=== PATIENT | female | born 1935 | race African-American/Black ===

== ENCOUNTER 2018-06-05 04:27 | Emergency (ER) | payer BC ==
[2018-06-05 05:32] VITALS: BMI 32.2
--- NOTE | 2018-06-05 06:03 | PDOC ---
History of Present Illness - General Chief Complaint: Hemorrhoids Stated Complaint: VAGINAL BLEEDING Time Seen by Provider: 06/05/18 05:55 - History of Present Illness Initial Comments: 06/05/18 06:04 83 year old female, with a significant past medical history of HTN, Hypothyroidism who presents with bright red blood that filled the toilet bowl and two episodes of loose stool today. The patient has a history of hemorrhoids and had some bleeding for the past several days, however she has never had as much bleeding as she had today. The patient denies any abdominal pain, nausea, vomiting or fever. She denies any chest pain or shortness of breath. Past History - Past Medical History Allergies/Adverse Reactions: Allergies Allergy/AdvReac Type Severity Reaction Status Date / Time No Known Allergies Allergy Verified 06/05/18 05:32 Home Medications: Ambulatory Orders Amlodipine Besylate 0 mg PO DAILY 06/05/18 Atorvastatin Ca [Lipitor] 10 mg PO HS 06/05/18 Losartan Potassium 0 mg PO DAILY 06/05/18 Metformin HCl [Metformin HCl ER] 0 mg PO BID 06/05/18 Metoprolol Succinate [Toprol Xl] 0 mg PO HS 06/05/18 Omeprazole 0 mg PO HS PRN 06/05/18 Tyrosine [l-Tyrosine] 0 mg PO DAILY 06/05/18 - Suicide/Smoking/Psychosocial Hx Smoking History: Never smoked Have you smoked in the past 12 months: No If you are a former smoker, when did you quit?: 30yrs ago Information on smoking cessation initiated: No Hx Alcohol Use: No Drug/Substance Use Hx: No *Physical Exam - Vital Signs Last Vital Signs Temp Pulse Resp BP Pulse Ox 98.4 F 117 H 18 158/75 97 06/05/18 04:27 06/05/18 04:27 06/05/18 04:27 06/05/18 04:27 06/05/18 04:27 - Physical Exam Comments: 06/05/18 06:34 normal exam RECTAL: 4-5 flat hemorrhoids, 1 pink inflammed hemorrhoid without active bleeding, no gross blood noted, good rectal tone Moderate Sedation - Procedure Monitoring Vital Signs: Procedure Monitoring Vital Signs Temperature 98.4 F 06/05/18 04:27 Pulse Rate 117 H 06/05/18 04:27 Respiratory Rate 18 06/05/18 04:27 Blood Pressure 158/75 06/05/18 04:27 O2 Sat by Pulse Oximetry (%) 97 06/05/18 04:27 ED Treatment Course - LABORATORY CBC & Chemistry Diagram: 06/05/18 06:05 06/05/18 06:05 Medical Decision Making - Medical Decision Making 06/05/18 06:36 83 year old female, with a significant past medical history of HTN, Hypothyroidism who presents with bright red blood that filled the toilet bowl and two episodes of loose stool today. The patient has a history of hemorrhoids and had some bleeding for the past several days, however she has never had as much bleeding as she had today. The patient denies any abdominal pain, nausea, vomiting or fever. ED Course: LGIB (fissure vs hemorrhoid vs diverticular dz vs Crohns vs UC) cbc, cmp, ua, heme occult, ptt, ptinr, type and screen patient without abdominal pain on exam, less concerning for diverticular disease If labwork w/ leukocytosis consider CT *DC/Admit/Observation/Transfer - Discharge Dispostion Condition at time of disposition: Fair - Referrals Referrals: Feng Lewis MD [Primary Care Provider] - - Patient Instructions - Post Discharge Activity
[2018-06-05 06:29] LABS: BASO % 1.1 % (0-2.0); EOS % 1.8 % (0-4.5); HEMATOCRIT 36.9 % (32.4-45.2); HEMOGLOBIN 12.9 GM/dL (10.7-15.3); MCH 29.1 pg (25.7-33.7); MCHC 34.9 g/dl (32.0-36.0); MEAN CELL VOLUME 83.2 fl (80-96); MEAN PLT VOLUME 7.4 fl (7.5-11.1); MONO % 9.2 % (3.8-10.2); NEUT % 65.9 % (42.8-82.8); PLATELET COUNT 265 K/MM3 (134-434); RBC 4.43 M/mm3 (3.60-5.2); RDW 13.7 % (11.6-15.6); WHITE BLOOD COUNT 8.1 K/mm3 (4.0-10.0)
[2018-06-05 06:54] LABS: INR 1.07 (0.83-1.09); PROTHROMBIN TIME (PATIENT) 12.6 SEC (9.7-13.0)
[2018-06-05 06:57] LABS: ACTIVATED PTT 30.7 SECONDS (25.2-36.5)
[2018-06-05 07:01] LABS: ALBUMIN 3.8 g/dl (3.4-5.0); ALK PHOS 73 U/L (45-117); ANION GAP 7 MMOL/L (8-16); BILIRUBIN,TOTAL 0.3 mg/dL (0.2-1); BLOOD UREA NITROGEN 18 mg/dL (7-18); CALCIUM 9.1 mg/dL (8.5-10.1); CHLORIDE 107 mmol/L (98-107); CO2 27 mmol/L (21-32); CREATININE 0.8 mg/dL (0.55-1.3); GLUCOSE,RANDOM 158 mg/dL (74-106); POTASSIUM 3.7 mmol/L (3.5-5.1); SGOT/AST 15 U/L (15-37); SGPT/ALT 14 U/L (13-61); SODIUM 141 mmol/L (136-145); TOT PROT 7.7 g/dl (6.4-8.2)
[2018-06-05 08:01] LABS: URINE APPEARANCE SLCLOUDY; URINE BILIRUBIN NEGATIVE (<2.0 mg/dL); URINE COLOR YELLOW; URINE GLUCOSE (UA) NEGATIVE (NEGATIVE); URINE KETONE NEGATIVE (NEGATIVE); URINE LEUK ESTERASE NEGATIVE (NEGATIVE); URINE NITRITE NEGATIVE (NEGATIVE); URINE PROTEIN 1+ (NEGATIVE); URINE UROBILINOGEN NEGATIVE mg/dL (0.2-1.0)
[2018-06-05 08:03] VITALS: BP 153/87; PULSE 95; TEMP 97.8
[2018-06-05 08:05] LABS: EPI CELLS RARE /HPF (FEW); URINE HYALINE CAST 3 /lpf; URINE MUCUS RARE
--- NOTE | 2018-06-05 08:11 | PDOC ---
*Physical Exam - Vital Signs Last Vital Signs Temp Pulse Resp BP Pulse Ox 97.8 F 95 H 18 153/87 97 06/05/18 08:01 06/05/18 08:01 06/05/18 08:01 06/05/18 08:01 06/05/18 08:01 - Physical Exam Comments: 06/05/18 08:11 CBC. CMP unremarkable. stool occult negative but UA consistent with hematuria ( new) and 1+ protein (new). suspicious that the bleed may be vaginal as opposed to from hemorrhoids. will do a pelvic exam. 06/05/18 08:23 pelvic exam unremarkable for lesions or bleeding but child not rule out endometrial or ocervical patholoy. Brown stool noted on patients diaper. External hemorrhoids noted as well. will dc home with pcp, banquet houseperson and GI f/u after speaking with Dr Lewis. 06/05/18 09:44 Dr Lewis agreed that patient can d/c home but patient eloped before picking up dc papers Female Pelvic Exam: positive: normal external exam. negative: discharge, lesions, vaginal bleeding ED Treatment Course - LABORATORY CBC & Chemistry Diagram: 06/05/18 06:05 06/05/18 06:05 - ADDITIONAL ORDERS Additional order review: Laboratory Results 06/05/18 06/05/18 06/05/18 06:45 06:26 06:05 PT with INR INR PTT (Actin FS) Sodium Potassium Chloride Carbon Dioxide Anion Gap BUN Creatinine Creat Clearance w eGFR Random Glucose Calcium Total Bilirubin AST ALT Alkaline Phosphatase Total Protein Albumin Urine Color Yellow Urine Appearance Slcloudy Urine pH 5.0 Ur Specific Mcgraws 1.014 Urine Protein 1+ H Urine Glucose (UA) Negative Urine Ketones Negative Urine Blood 2+ H Urine Nitrite Negative Urine Bilirubin Negative Urine Urobilinogen Negative Ur Leukocyte Esterase Negative Urine WBC (Auto) 3 Urine RBC (Auto) 10 Ur Epithelial Cells Rare Hyaline Casts 3 Urine Mucus Rare Stool Occult Blood Negative Blood Type O POSITIVE Antibody Screen Negative 06/05/18 06/05/18 06:05 06:05 PT with INR 12.60 INR 1.07 PTT (Actin FS) 30.7 Sodium 141 Potassium 3.7 Chloride 107 Carbon Dioxide 27 Anion Gap 7 L BUN 18 Creatinine 0.8 Creat Clearance w eGFR > 60 Random Glucose 158 H Calcium 9.1 Total Bilirubin 0.3 AST 15 ALT 14 Alkaline Phosphatase 73 Total Protein 7.7 Albumin 3.8 Urine Color Urine Appearance Urine pH Ur Specific [place] Urine Protein Urine Glucose (UA) Urine Ketones Urine Blood Urine Nitrite Urine Bilirubin Urine Urobilinogen Ur Leukocyte Esterase Urine WBC (Auto) Urine RBC (Auto) Ur Epithelial Cells Hyaline Casts Urine Mucus Stool Occult Blood Blood Type Antibody Screen 06/05/18 06:05 RBC 4.43 MCV 83.2 MCHC 34.9 RDW 13.7 MPV 7.4 L Neutrophils % 65.9 D Lymphocytes % 22.0 D Monocytes % 9.2 Eosinophils % 1.8 Basophils % 1.1 *DC/Admit/Observation/Transfer Diagnosis at time of Disposition: Rectal bleeding - Discharge Dispostion Disposition: ELOPED Condition at time of disposition: Good - Referrals Referrals: Feng Lewis MD [Primary Care Provider] - - Patient Instructions - Post Discharge Activity
--- NOTE | 2018-06-05 08:22 | PDOC ---
*Physical Exam - Vital Signs Last Vital Signs Temp Pulse Resp BP Pulse Ox 97.8 F 95 H 18 153/87 97 06/05/18 08:01 06/05/18 08:01 06/05/18 08:01 06/05/18 08:01 06/05/18 08:01 ED Treatment Course - LABORATORY CBC & Chemistry Diagram: 06/05/18 06:05 06/05/18 06:05 - ADDITIONAL ORDERS Additional order review: Laboratory Results 06/05/18 06/05/18 06/05/18 06:45 06:26 06:05 PT with INR INR PTT (Actin FS) Sodium Potassium Chloride Carbon Dioxide Anion Gap BUN Creatinine Creat Clearance w eGFR Random Glucose Calcium Total Bilirubin AST ALT Alkaline Phosphatase Total Protein Albumin Urine Color Yellow Urine Appearance Slcloudy Urine pH 5.0 Ur Specific Gladys 1.014 Urine Protein 1+ H Urine Glucose (UA) Negative Urine Ketones Negative Urine Blood 2+ H Urine Nitrite Negative Urine Bilirubin Negative Urine Urobilinogen Negative Ur Leukocyte Esterase Negative Urine WBC (Auto) 3 Urine RBC (Auto) 10 Ur Epithelial Cells Rare Hyaline Casts 3 Urine Mucus Rare Stool Occult Blood Negative Blood Type O POSITIVE Antibody Screen Negative 06/05/18 06/05/18 06:05 06:05 PT with INR 12.60 INR 1.07 PTT (Actin FS) 30.7 Sodium 141 Potassium 3.7 Chloride 107 Carbon Dioxide 27 Anion Gap 7 L BUN 18 Creatinine 0.8 Creat Clearance w eGFR > 60 Random Glucose 158 H Calcium 9.1 Total Bilirubin 0.3 AST 15 ALT 14 Alkaline Phosphatase 73 Total Protein 7.7 Albumin 3.8 Urine Color Urine Appearance Urine pH Ur Specific Gladys Urine Protein Urine Glucose (UA) Urine Ketones Urine Blood Urine Nitrite Urine Bilirubin Urine Urobilinogen Ur Leukocyte Esterase Urine WBC (Auto) Urine RBC (Auto) Ur Epithelial Cells Hyaline Casts Urine Mucus Stool Occult Blood Blood Type Antibody Screen 06/05/18 06:05 RBC 4.43 MCV 83.2 MCHC 34.9 RDW 13.7 MPV 7.4 L Neutrophils % 65.9 D Lymphocytes % 22.0 D Monocytes % 9.2 Eosinophils % 1.8 Basophils % 1.1 Medical Decision Making - Medical Decision Making 06/05/18 08:18 I received this patient on sign out Briefly, she presented to the ER with BRBPR This was not seen on examination (guiaic negative) Pt has no abdominal pain or tenderness Labs demonstrate stable HGB BUN not elevated Awaiting UA 06/05/18 08:21 Laboratory Tests 06/05/18 06:45 Urine Blood 2+ H Urine Nitrite Negative Ur Leukocyte Esterase Negative Urine WBC (Auto) 3 Urine RBC (Auto) [address] Kinney PMD contacted 06/05/18 09:[address] Lewis he has spoken to this patient Plan is for discharge Pt waled out prior to getting her discharge papers *DC/Admit/Observation/Transfer Diagnosis at time of Disposition: Rectal bleeding - Discharge Dispostion Disposition: ELOPED Condition at time of disposition: Fair Decision to Admit order: No - Referrals Referrals: Feng Lewis MD [Primary Care Provider] - - Patient Instructions Printed Discharge Instructions: DI for Rectal Bleeding - Post Discharge Activity
== END 2018-06-05 09:51 | disposition left against medical advice (07) ==
LOC: JER 04:27
DX: K64.9 Unspecified hemorrhoids (principal); K62.5 Hemorrhage of anus and rectum; I10 Essential (primary) hypertension; E03.9 Hypothyroidism, unspecified
CPT/HCPCS: 36415; 80053; 81003; 81015; 82272; 85025; 85610; 85730; 86850; 86900; 86901; 99284-25

== ENCOUNTER 2019-04-05 21:36 | Inpatient (IN) | payer BC, OTHER ==
[2019-04-05 21:42] VITALS: BMI 31.2
--- NOTE | 2019-04-05 22:05 | PDOC ---
History of Present Illness - General Chief Complaint: Back Pain Stated Complaint: BACK PAIN Time Seen by Provider: 04/05/19 21:59 - History of Present Illness Initial Comments: 04/05/19 23:33 83y/o F hx of HTN, hypothyroidism and arthritis, presents to the ER with 4 days of left hip pain She remembers pain began suddenly and there where no falls/trauma at the time of the incident Pain is 7./10, is worse with movement, sitting up or attempted ambulation. relieved by lying down She placed an over the counter lidocaine patch on it this morning with no relief She denies any fevers, chills, prior hip surgeries, nausea, vomiting, headache, numbness,loss of sensation tingling. Past History - Past Medical History Allergies/Adverse Reactions: Allergies Allergy/AdvReac Type Severity Reaction Status Date / Time No Known Allergies Allergy Verified 04/05/19 21:42 Home Medications: Ambulatory Orders Amlodipine Besylate 0 mg PO DAILY 06/05/18 Atorvastatin Ca [Lipitor] 10 mg PO HS 06/05/18 Losartan Potassium 0 mg PO DAILY 06/05/18 Metoprolol Succinate [Toprol Xl] 0 mg PO HS 06/05/18 Omeprazole 0 mg PO HS PRN 06/05/18 Tyrosine [l-Tyrosine] 0 mg PO DAILY 06/05/18 metFORMIN HCL [Metformin HCl ER] 0 mg PO BID 06/05/18 COPD: No Diabetes: Yes HTN: Yes Hypercholesterolemia: Yes Thyroid Disease: Yes (Hypothyroid) - Psycho Social/Smoking Cessation Hx Smoking History: Never smoked Have you smoked in the past 12 months: No If you are a former smoker, when did you quit?: 30yrs ago Hx Alcohol Use: No Drug/Substance Use Hx: No Review of Systems - Review of Systems Constitutional: No: Chills, Fever HEENTM: No: Eye Pain, Blurred Vision Respiratory: No: Cough Cardiac (ROS): No: Chest Pain, Chest Tightness ABD/GI: No: Nausea, Vomiting : No: Dysuria, Hematuria Musculoskeletal: Yes: Joint Pain. No: Back Pain Integumentary: No: Bruising, Change in Color Neurological: No: Headache, Numbness *Physical Exam - Vital Signs Last Vital Signs Temp Pulse Resp BP Pulse Ox 97.9 F 111 H 18 158/84 99 04/05/19 21:40 04/05/19 21:40 04/05/19 21:40 04/05/19 21:40 04/05/19 21:40 - Physical Exam 04/05/19 23:38 PE: GENERAL: Awake, alert, and fully oriented, uncomfortable with movement HEAD: No signs of trauma, normocephalic, atraumatic EYES: EOMI, sclera anicteric, conjunctiva clear ENT: Auricles normal inspection, hearing grossly normal, nares patent, oropharynx clear without exudates. Moist mucosa NECK: Normal ROM, supple, no lymphadenopathy, JVD, or masses LUNGS: No distress, speaks full sentences, faint crackles on lung bases. HEART: tachycardic, normal S1 and S2, no murmurs, rubs or gallops, peripheral pulses normal and equal bilaterally. ABDOMEN: Soft, nontender, normoactive bowel sounds. No guarding, no rebound. No masses EXTREMITIES : no swelling/redness of left hip noted. tenderness to palpation of left hip and left buttock. normal ROM bilaterally no loss of sensation. 5/5 strength lower extremitites bilaterally. NEUROLOGICAL: Cranial nerves II through XII grossly intact. Normal speech, SKIN: Warm, Dry, normal turgor, no rashes or lesions noted Medical Decision Making - Medical Decision Making 04/05/19 23:44 83y/o F hx of HTN, hypothyroidism and arthritis, presents to the ER with 4 days of left hip pain hip and pelvis x-ray Meds: Iv tylenol for pain 04/06/19 01:[address] IMPRESSION: 1. No evidence of acute fractures on this study. 2. Scoliotic lower lumbar spine. 3. Diffuse degenerative changes with osteopenia. 4. Chronic enthesopathy. Right Hip IMPRESSION: 1. No evidence of acute fractures on this study. 2. Scoliotic lower lumbar spine. 3. Diffuse degenerative changes with osteopenia. 04/06/19 01:40 Pt. reassesed, left hip pain improved with movement will be getting pelvis CT to further evaluat enthesopathy 04/06/19 03:[address] read IMPRESSION: 1. Osteopenia without acute traumatic osseous abnormality. 2. Partially imaged distal abdominal aortic aneurysm and extensive ASVD as noted above. 3. Colonic diverticulosis without evidence of diverticulitis. 4. Degenerative changes in the imaged spine, hips, and pubic symphysis 04/06/19 04:04 Ambulation attempted. Pt. unable to ambulate Microblogged for admission. Discharge - Follow up/Referral Referrals: Feng Lewis MD [Primary Care Provider] - - Patient Discharge Instructions - Post Discharge Activity
[2019-04-05] MEDS ORDERED: ACETAMINOPHEN 1000 MG/100 ML VIAL (NON FORMULARY) IVPB ONE (23:06)
[2019-04-05] MEDS ORDERED: SODIUM CHLORIDE 0.9% 500 ML INFUS.BAG IV ONE (23:06)
[2019-04-05] MEDS ORDERED: ACETAMINOPHEN INJECTION 100 ML IVPB ONE (23:24)
--- NOTE | 2019-04-06 03:49 | PDOC ---
*Physical Exam - Vital Signs Last Vital Signs Temp Pulse Resp BP Pulse Ox 98.0 F 87 19 146/77 94 L 04/06/19 01:56 04/06/19 01:56 04/06/19 01:56 04/06/19 01:56 04/06/19 01:56 ED Treatment Course - Medications Given in the ED: ED Medications Discontinued Medications Generic Name Dose Route Start Last Admin Trade Name Adrianna PRN Reason Stop Dose Admin Acetaminophen 1,000 mg 04/05/19 23:06 04/06/19 00:23 Ofirmev Injection - IVPB 04/05/19 23:07 1,000 mg ONCE ONE Administration Sodium Chloride 500 ml 04/05/19 23:06 04/06/19 00:28 Normal Saline - IV 04/05/19 23:07 500 ml ONCE ONE Administration Medical Decision Making - Medical Decision Making 04/06/19 03:49 Patient Name: MANJINDER UNDERWOOD THIS IS A PRELIMINARY REPORT FROM [facility] DATE OF SERVICE: 2019-04-06 01:50:42 IMAGES: [id number] EXAM: PELVIS CT WITHOUT CONTRAST HISTORY: Atraumatic left hip pain. COMPARISON: X-rays pelvis and bilateral hips of 04/05/2019. FINDINGS: Osteopenia noted. Bone island in the posterior left ilium. No acute fractures or dislocations. Degenerative changes in the imaged spine, hips, and pubic symphysis. Slight anterolisthesis of L5 over S1 without spondylolysis. Partially imaged distal abdominal aortic aneurysm measuring 4.4 cm AP and 4.1 cm transverse. Atherosclerotic calcifications in the aortoiliofemoral system. Diverticulosis of the distal descending and sigmoid colon without evidence of diverticulitis. No ascites. No lymphadenopathy. Partially distended urinary bladder. No bowel obstruction. Left anterolateral pelvic wall hernia containing fat. Calcified injection granulomas in the buttocks bilaterally. IMPRESSION: 1. Osteopenia without acute traumatic osseous abnormality. 2. Partially imaged distal abdominal aortic aneurysm and extensive ASVD as noted above. 3. Colonic diverticulosis without evidence of diverticulitis. 4. Degenerative changes in the imaged spine, hips, and pubic symphysis 04/06/19 05:59 Pt will be admitted as she is unable to ambulate. Discharge - Discharge Information Problems reviewed: Yes Clinical Impression/Diagnosis: Unable to ambulate - Admission Yes - Follow up/Referral - Patient Discharge Instructions - Post Discharge Activity
--- NOTE | 2019-04-06 05:19 | HP ---
Admitting History and Physical - Primary Care Physician PCP: Feng Lewis - Admission Chief Complaint: L- Hip Pain History of Present Illness: This is a 83 y/o woman with a PMHx of HTN, HLD, DM, OA. Who presents to the ED with her son for L- hip pain and inability to ambulate due to the pain. Patient reports having sharp L- hip pain x several days increased with movement. Patient reports usually ambulating with a cane. Patient denies fall or trauma. Patient reports not being able to ambulate with her cane secondary to the sharp , severe L-hip pain. Patient denies parasthesias. Patient denies fever, chills, cough, dizziness, VITAL, SOB, CP, palpitations, AP, N/V/D, dysuria. History Source: Patient Limitations to Obtaining History: No Limitations - Past Medical History REFERENCE LIBRARIAN: Yes: CVA Cardiovascular: Yes: HTN, Hyperlipdemia Musculoskeletal: Yes: Osteoarthritis Endocrine: Yes: Diabetes Mellitus, Hypothyroidism - Smoking History Smoking history: Never smoked Have you smoked in the past 12 months: No If you are a former smoker, when did you quit?: 30yrs ago - Alcohol/Substance Use Hx Alcohol Use: No History of Substance Use: reports: None - Social History Usual Living Arrangement: Yes: With Child ADL: Family Assistance (ambulates with cane) History of Recent Travel: No Home Medications - Allergies Allergies/Adverse Reactions: Allergies Allergy/AdvReac Type Severity Reaction Status Date / Time No Known Allergies Allergy Verified 04/05/19 21:42 - Home Medications Home Medications: Ambulatory Orders Amlodipine Besylate 0 mg PO DAILY 06/05/18 Atorvastatin Ca [Lipitor] 10 mg PO HS 06/05/18 Losartan Potassium 0 mg PO DAILY 06/05/18 Metoprolol Succinate [Toprol Xl] 0 mg PO HS 06/05/18 Omeprazole 0 mg PO HS PRN 06/05/18 Tyrosine [l-Tyrosine] 0 mg PO DAILY 06/05/18 metFORMIN HCL [Metformin HCl ER] 0 mg PO BID 06/05/18 Home Medications (free text): Patient provided Med List: L- Tyrosine 100mg QD. Metoprolol 50mg QD. Omeprazole 40mg QD. Amlodipine Besylate 10mg QD. Losartan 50mg QD. Metformin 500mg BID Family Medical History Family Hx Diabetes: Sister Review of Systems - Review of Systems Constitutional: reports: No Symptoms Eyes: reports: No Symptoms HENT: reports: No Symptoms Neck: reports: No Symptoms Cardiovascular: reports: No Symptoms Respiratory: reports: No Symptoms Gastrointestinal: reports: No Symptoms Genitourinary: reports: No Symptoms Breasts: reports: No Symptoms Reported Musculoskeletal: reports: Extremity Pain, Joint Pain Integumentary: reports: No Symptoms Neurological: reports: Unsteady Gait. denies: Numbness Endocrine: reports: No Symptoms Hematology/Lymphatic: reports: No Symptoms Psychiatric: reports: No Symptoms Pain Intensity: 8 Physical Examination Vital Signs: Vital Signs Temperature 98.0 F 04/06/19 01:56 Pulse Rate 87 04/06/19 01:56 Respiratory Rate 19 04/06/19 01:56 Blood Pressure 146/77 04/06/19 01:56 O2 Sat by Pulse Oximetry (%) 94 L 04/06/19 01:56 Constitutional: Yes: Mild Distress, Obese Eyes: Yes: WNL, Conjunctiva Clear, EOM Intact, PERRL HENT: Yes: WNL, Atraumatic, Normocephalic Neck: Yes: WNL, Supple, Trachea Midline Cardiovascular: Yes: WNL, Regular Rate and Rhythm, S1, S2 Respiratory: Yes: WNL, Regular, CTA Bilaterally Gastrointestinal: Yes: WNL, Normal Bowel Sounds, Soft, Abdomen, Obese ...Rectal Exam: Yes: Deferred Renal/: Yes: Incontinence Breast(s): Yes: WNL Musculoskeletal: Yes: Joint Stiffness, Other (Joint Pain) Extremities: Yes: WNL Edema: No Peripheral Pulses WNL: Yes Neurological: Yes: Alert, Oriented, Pre-Existing Deficit ...Motor Strength: WNL Psychiatric: Yes: WNL, Alert, Oriented Labs: Imagin04/06/19 03:38 Patient Name: MANJINDER UNDERWOOD THIS IS A PRELIMINARY REPORT FROM [facility] DATE OF SERVICE: 2019-04-06 01:50:42 IMAGES: [id number] EXAM: PELVIS CT WITHOUT CONTRAST HISTORY: Atraumatic left hip pain. COMPARISON: X-rays pelvis and bilateral hips of 04/05/2019. FINDINGS: Osteopenia noted. Bone island in the posterior left ilium. No acute fractures or dislocations. Degenerative changes in the imaged spine, hips, and pubic symphysis. Slight anterolisthesis of L5 over S1 without spondylolysis. Partially imaged distal abdominal aortic aneurysm measuring 4.4 cm AP and 4.1 cm transverse. Atherosclerotic calcifications in the aortoiliofemoral system. Diverticulosis of the distal descending and sigmoid colon without evidence of diverticulitis. No ascites. No lymphadenopathy. Partially distended urinary bladder. No bowel obstruction. Left anterolateral pelvic wall hernia containing fat. Calcified injection granulomas in the buttocks bilaterally. IMPRESSION: 1. Osteopenia without acute traumatic osseous abnormality. 2. Partially imaged distal abdominal aortic aneurysm and extensive ASVD as noted above. 3. Colonic diverticulosis without evidence of diverticulitis. 4. Degenerative changes in the imaged spine, hips, and pubic symphysis. Imaging - Results X-ray: Image Reviewed (Right Hip IMPRESSION: 1. No evidence of acute fractures on this study. 2. Scoliotic lower lumbar spine. 3. Diffuse degenerative changes with osteopenia.) Cat Scan: Image Reviewed (Left Hip CT IMPRESSION: 1. No evidence of acute fractures on this study. 2. Scoliotic lower lumbar spine. 3. Diffuse degenerative changes with osteopenia. 4. Chronic enthesopathy.) Problem List - Problems (1) Hip pain, acute Assessment/Plan: Possibly due to OA vs Bursitis Hip/Pelvis xray image reviewed Hip CT without contrast reviewed no acute abnormality Offirmev given in ED Tylenol prn Appreciate Ortho consult Appreciate PT eval Neurovascular checks Fall Precautions Monitor vitals Code(s): M25.559 - PAIN IN UNSPECIFIED HIP (2) Inability to ambulate due to hip Assessment/Plan: see above Code(s): R26.2 - DIFFICULTY IN WALKING, NOT ELSEWHERE CLASSIFIED (3) HTN (hypertension) Assessment/Plan: stable Monitor BP Continue home meds with parameters Monitor renal function Code(s): I10 - ESSENTIAL (PRIMARY) HYPERTENSION (4) HLD (hyperlipidemia) Assessment/Plan: stable Continue Lipitor Monitor LFTs Code(s): E78.5 - HYPERLIPIDEMIA, UNSPECIFIED (5) Diabetes mellitus Assessment/Plan: stable BGMs Continue Metformin Code(s): E11.9 - TYPE 2 DIABETES MELLITUS WITHOUT COMPLICATIONS (6) Hypothyroidism Assessment/Plan: stable Continue home med Code(s): E03.9 - HYPOTHYROIDISM, UNSPECIFIED Assessment/Plan This is a 83 y/o woman with a PMHx of HTN, HLD, DM, OA. Admitted to [facility] for Intractable L- Hip Pain, Unable to Ambulate for further evaluation of their emergent condition. Plan: See Problem List FEN PO fluids as tolerated Replete lytes prn Low Na, Diabetic Diet DVT ppx OOB SCDs Heparin SQ Dispo: Requires Inpatient Care Visit type - Emergency Visit Emergency Visit: Yes ED Registration Date: 04/06/19 Care time: The patient presented to the Emergency Department on the above date and was hospitalized for further evaluation of their emergent condition. - New Patient This patient is new to me today: Yes Date on this admission: 04/06/19 - Critical Care Critical Care patient: No
[2019-04-06] MEDS: LEVOTHYROXINE NA 100 MCG TABLET (FP) PO SCH (06:54)
[2019-04-06 09:35] LABS: BASO % 0.8 % (0-2.0); HEMATOCRIT 37.6 % (32.4-45.2); HEMOGLOBIN 12.5 GM/dL (10.7-15.3); LYMPH % 25.4 % (8-40); MCH 27.9 pg (25.7-33.7); MCHC 33.2 g/dl (32.0-36.0); MEAN PLT VOLUME 8.3 fl (7.5-11.1); MONO % 9.3 % (3.8-10.2); NEUT % 61.5 % (42.8-82.8); PLATELET COUNT 239 K/MM3 (134-434); RBC 4.48 M/mm3 (3.60-5.2); RDW 14.3 % (11.6-15.6); WHITE BLOOD COUNT 6.9 K/mm3 (4.0-10.0)
[2019-04-06 09:54] LABS: BLOOD UREA NITROGEN 8.6 mg/dL (7-18); CALCIUM 8.9 mg/dL (8.5-10.1); CREATININE 0.6 mg/dL (0.55-1.3); POTASSIUM 3.8 mmol/L (3.5-5.1)
[2019-04-06] MEDS ORDERED: KETOROLAC TROMETHAMINE 15 MG/ML VIAL IVPUSH PRN (10:55)
[2019-04-06] MEDS ORDERED: ACETAMINOPHEN 325 MG TABLET (FP) PO PRN (10:55)
--- NOTE | 2019-04-06 10:55 | PN ---
Progress Note, Physician Chief Complaint: AWAKE ALERT CALM FEELING BETTER - Current Medication List Current Medications: Active Medications Amlodipine Besylate (Norvasc -) 10 mg PO DAILY [facility] Atorvastatin Calcium (Lipitor -) 20 mg PO HS [facility] Heparin Sodium (Porcine) (Heparin -) 5,000 unit SQ BID [facility] Levothyroxine Sodium (Synthroid -) 100 mcg PO DAILY@0700 [facility] Last Admin: 04/06/19 06:54 Dose: 100 mcg Losartan Potassium (Cozaar -) 50 mg PO DAILY [facility] Metoprolol Succinate (Toprol Xl -) 50 mg PO DAILY [facility] Pantoprazole Sodium (Protonix -) 40 mg PO DAILY [facility] - Objective Vital Signs: Vital Signs Temperature 97.4 F L 04/06/19 06:16 Pulse Rate 95 H 04/06/19 06:16 Respiratory Rate 19 04/06/19 06:16 Blood Pressure 145/73 04/06/19 06:16 O2 Sat by Pulse Oximetry (%) 95 04/06/19 06:16 Constitutional: Yes: Mild Distress Cardiovascular: Yes: Regular Rate and Rhythm Respiratory: Yes: WNL Gastrointestinal: Yes: WNL Genitourinary: Yes: WNL Musculoskeletal: Yes: Other Extremities: Yes: Other (PAIN LEFT HIP DECREASED ROM) Edema: No Wound/Incision: Yes: Clean/Dry Neurological: Yes: WNL, Other ...Motor Strength: LLE Labs: CBC, BMP 04/06/19 08:20 04/06/19 08:20 Problem List - Problems (1) Diabetes mellitus Code(s): E11.9 - TYPE 2 DIABETES MELLITUS WITHOUT COMPLICATIONS (2) HLD (hyperlipidemia) Code(s): E78.5 - HYPERLIPIDEMIA, UNSPECIFIED (3) HTN (hypertension) Code(s): I10 - ESSENTIAL (PRIMARY) HYPERTENSION (4) Hip pain, acute Code(s): M25.559 - PAIN IN UNSPECIFIED HIP (5) Hypothyroidism Code(s): E03.9 - HYPOTHYROIDISM, UNSPECIFIED (6) Inability to ambulate due to hip Code(s): R26.2 - DIFFICULTY IN WALKING, NOT ELSEWHERE CLASSIFIED Assessment/Plan CT AND XRAYS REVIEWED PAIN CONTROL ORTHOPEDIC FOLLOW UP PT EVAL/OOB TO CHAIR LIDOCAINE PATCH
[2019-04-06] MEDS: HEPARIN NA (PORCINE) 5,000 UNITS/ML 1ML VIAL SQ SCH ×2 (10:57→22:01)
[2019-04-06] MEDS: LOSARTAN POTASSIUM 50 MG TABLET (FP) PO SCH (10:57)
[2019-04-06] MEDS: PANTOPRAZOLE 40 MG TABLET (FP) PO SCH (10:57)
[2019-04-06] MEDS: amLODIPine BESYLATE 10 MG TABLET (FP) PO SCH (10:57)
[2019-04-06] MEDS: LIDOCAINE 5% TOPICAL PATCH TP SCH (17:36)
[2019-04-06] MEDS ORDERED: ATORVASTATIN CA 20 MG TABLET (FP) PO SCH (22:00)
[2019-04-06] MEDS ORDERED: LIDOCAINE PATCH REMOVAL MC SCH (22:00)
[2019-04-07] MEDS: LEVOTHYROXINE NA 100 MCG TABLET (FP) PO SCH (06:12)
[2019-04-07] MEDS: PANTOPRAZOLE 40 MG TABLET (FP) PO SCH (10:14)
[2019-04-07] MEDS: HEPARIN NA (PORCINE) 5,000 UNITS/ML 1ML VIAL SQ SCH (10:14)
[2019-04-07] MEDS: LOSARTAN POTASSIUM 50 MG TABLET (FP) PO SCH (10:14)
[2019-04-07] MEDS: amLODIPine BESYLATE 10 MG TABLET (FP) PO SCH (10:14)
[2019-04-07] MEDS: LIDOCAINE 5% TOPICAL PATCH TP SCH (10:15)
--- NOTE | 2019-04-07 11:29 | DS ---
Physical Examination Vital Signs: Vital Signs Temperature 97.8 F 04/07/19 04:36 Pulse Rate 91 H 04/07/19 04:36 Respiratory Rate 20 04/07/19 04:36 Blood Pressure 138/84 04/07/19 04:36 O2 Sat by Pulse Oximetry (%) 95 04/06/19 21:00 Findings/Remarks: AWAKE ALERT DENIES ANY PAIN FEELS GOOD TODAY Constitutional: Yes: No Distress Eyes: Yes: WNL HENT: Yes: WNL Neck: Yes: WNL Cardiovascular: Yes: Regular Rate and Rhythm Respiratory: Yes: WNL Gastrointestinal: Yes: WNL Musculoskeletal: Yes: Muscle Pain Extremities: Yes: WNL Edema: No Peripheral Pulses WNL: Yes Integumentary: Yes: WNL Wound/Incision: Yes: Clean/Dry Neurological: Yes: Pre-Existing Deficit, Other ...Motor Strength: LLE Psychiatric: Yes: Other Labs: CBC, BMP 04/06/19 08:20 04/06/19 08:20 Discharge Summary Problems reviewed: Yes Reason For Visit: PAIN OF LEFT HIP Current Active Problems Diabetes mellitus (Acute) HLD (hyperlipidemia) (Acute) HTN (hypertension) (Acute) Hip pain, acute (Acute) Hypothyroidism (Acute) Inability to ambulate due to hip (Acute) Procedures: Principal: XRAYS/CT SCAN Hospital Course: ADMITTED FOR WEAKNESS/POOR AMBULATION WORKUP SHOWS ARTHRITIC HIP AND CONSTIPATION FOLLOW UP WITH ORTHOPEDICS/PMD OUTPATIENT Plan of Treatment: SEE YOUR PMD AND ORTHOPEDICS OUTPATIENT Condition: Stable - Instructions Referrals: Feng Lewis MD [Primary Care Provider] - Disposition: VNS/HOME HEALTH CARE - Home Medications Comprehensive Discharge Medication List: Ambulatory Orders Amlodipine Besylate 0 mg PO DAILY 06/05/18 Atorvastatin Ca [Lipitor] 10 mg PO HS 06/05/18 Losartan Potassium 0 mg PO DAILY 06/05/18 Metoprolol Succinate [Toprol Xl] 0 mg PO HS 06/05/18 Omeprazole 0 mg PO HS PRN 06/05/18 Tyrosine [l-Tyrosine] 0 mg PO DAILY 06/05/18 metFORMIN HCL [Metformin HCl ER] 0 mg PO BID 06/05/18 Acetaminophen [Tylenol .Regular Strength -] 325 mg PO Q6H PRN tablet 04/07/19 Lidocaine Patch Removal [Lidoderm Patch Removal] 1 each [facility] DAILY@2200 #10 each 04/07/19 Prescription Drug Monitoring Program (I-STOP) results: I-STOP not reviewed
[2019-04-07 13:06] VITALS: BP 117/69; PULSE 93; TEMP 98
== END 2019-04-07 14:45 | disposition home health service (06) | DRG 554 ==
LOC: JER 21:36 → JERBED 04-06 04:42 → J6S 04-06 06:23
PROVIDERS: ADMIT Internal Medicine; ATTEND Family Medicine
DX: M16.0 Bilateral primary osteoarthritis of hip (principal); E11.9 Type 2 diabetes mellitus without complications; E78.5 Hyperlipidemia, unspecified; I10 Essential (primary) hypertension; E03.9 Hypothyroidism, unspecified; R26.2 Difficulty in walking, not elsewhere classified; M25.559 Pain in unspecified hip
CPT/HCPCS: 36415; 72192-TC; 73523-TC-FY; 80048; 84443; 85025; 97116-GP; 99284-25; J0131; J1644

== ENCOUNTER 2021-02-02 07:19 | Emergency (ER) | payer BC ==
[2021-02-02 07:57] VITALS: BP 144/81; PULSE 100; TEMP 98; BMI 33.2
[2021-02-02] MEDS ORDERED: ACETAMINOPHEN 325 MG TABLET (FP) PO ONE (08:20)
[2021-02-02] MEDS ORDERED: LIDOCAINE 5% TOPICAL PATCH TP ONE (08:20)
[2021-02-02] MEDS ORDERED: LIDOCAINE 5% TOPICAL PATCH ONE (08:31)
[2021-02-02] MEDS ORDERED: ACETAMINOPHEN 325 MG TABLET (FP) ONE (08:31)
[2021-02-02] MEDS ORDERED: LIDOCAINE PATCH REMOVAL MC ONE (22:00)
== END 2021-02-02 12:52 | disposition home or self-care (01) ==
LOC: JER 07:19
DX: M25.552 Pain in left hip (principal); I71.4 Abdominal aortic aneurysm, without rupture
CPT/HCPCS: 72170-TC-FY; 72192-TC; 73502-TC-LT-FY; 99284-25

== ENCOUNTER 2021-02-16 10:23 | Emergency (ER) | payer BC ==
[2021-02-16 10:55] VITALS: TEMP 98.1; BMI 27.0
[2021-02-16] MEDS ORDERED: ACETAMINOPHEN 1000 MG/100 ML VIAL IVPB ONE (12:09)
[2021-02-16] MEDS ORDERED: LIDOCAINE 5% TOPICAL PATCH TP ONE (12:09)
[2021-02-16] MEDS ORDERED: ACETAMINOPHEN INJECTION 100 ML IVPB ONE (12:22)
[2021-02-16] MEDS ORDERED: LIDOCAINE 5% TOPICAL PATCH ONE (12:22)
[2021-02-16 13:08] LABS: INR 1.09 (0.83-1.09); PROTHROMBIN TIME (PATIENT) 12.2 SEC (9.7-13.0)
[2021-02-16 13:09] LABS: EPI CELLS 6 /uL (0-25.1); HYALINE CASTS 0 /uL (0-3.1); URINE APPEARANCE CLEAR; URINE BACTERIA 111 /uL (0-1359); URINE BILIRUBIN NEGATIVE (NEGATIVE); URINE COLOR YELLOW; URINE GLUCOSE (UA) NEGATIVE (NEGATIVE); URINE KETONE TRACE (NEGATIVE); URINE LEUK ESTERASE NEGATIVE (NEGATIVE); URINE NITRITE NEGATIVE (NEGATIVE); URINE PROTEIN 1+ (NEGATIVE); URINE RBC 10 /uL (0-23.9); URINE UROBILINOGEN 0.2 mg/dL (0.2-1.0); URINE WBC 3 /uL (0-25.8)
[2021-02-16 13:10] LABS: ACTIVATED PTT 29.7 SECONDS (25.2-36.5)
[2021-02-16 13:14] LABS: BASO % 0.8 % (0-2.0); EOS % 0.6 % (0-4.5); HEMATOCRIT 35.5 % (32.4-45.2); MCH 28.1 pg (25.7-33.7); MCHC 33.7 g/dl (32.0-36.0); MEAN CELL VOLUME 83.3 fl (80-96); MEAN PLT VOLUME 7.6 fl (7.5-11.1); MONO % 11.2 % (3.8-10.2); NEUT % 69.4 % (42.8-82.8); PLATELET COUNT 237 10^3/uL (134-434); RBC 4.27 M/mm3 (3.60-5.2); RDW 15.6 % (11.6-15.6); WHITE BLOOD COUNT 6.6 K/mm3 (4.0-10.0)
[2021-02-16 13:23] LABS: ALBUMIN 3.6 g/dl (3.4-5.0); BLOOD UREA NITROGEN 14.6 mg/dL (7-18); CALCIUM 9.2 mg/dL (8.5-10.1)
[2021-02-16 13:27] LABS: CREATININE 1.1 mg/dL (0.55-1.3)
[2021-02-16 13:28] LABS: TOT PROT 8.2 g/dl (6.4-8.2)
[2021-02-16 13:31] LABS: BILIRUBIN,TOTAL 0.6 mg/dL (0.2-1)
[2021-02-16] MEDS ORDERED: KETOROLAC TROMETHAMINE 30 MG/1 ML VIAL IVPUSH ONE (15:28)
[2021-02-16] MEDS ORDERED: DEXAMETHASONE SOD PHOSPHATE 10 MG/1 ML VIAL IVPUSH ONE (15:32)
[2021-02-16] MEDS ORDERED: DEXAMETHASONE SOD PHOSPHATE 10 MG/1 ML VIAL ONE (15:34)
[2021-02-16] MEDS ORDERED: KETOROLAC TROMETHAMINE 30 MG/1 ML VIAL ONE (15:34)
[2021-02-16 16:27] VITALS: BP 138/79; PULSE 86
[2021-02-16] MEDS ORDERED: LIDOCAINE PATCH REMOVAL MC SCH (22:00)
== END 2021-02-16 16:39 | disposition home or self-care (01) ==
LOC: JER 10:23
PROC: 3E033NZ Introduction of Analgesics, Hypnotics, Sedatives into Peripheral Vein, Percutaneous Approach (ICD-10-PCS; principal; 2021-02-16)
PROC: 3E0333Z Introduction of Anti-inflammatory into Peripheral Vein, Percutaneous Approach (ICD-10-PCS; 2021-02-16)
PROC: 3E033GC Introduction of Other Therapeutic Substance into Peripheral Vein, Percutaneous Approach (ICD-10-PCS; 2021-02-16)
DX: M25.552 Pain in left hip (principal)
CPT/HCPCS: 36415; 72131-TC; 74176-TC; 80053; 81003; 82272; 82550; 83605; 85025; 85610; 85730; 87086; 87186; 99284-25; 99291; C9803; J0131; J1100; U0003; U0005

== ENCOUNTER 2021-03-08 13:54 | Observation (INO) | payer BC ==
[2021-03-08] MEDS ORDERED: SODIUM CHLORIDE 0.9% 500 ML INFUS.BAG IV ONE (16:31)
[2021-03-08] MEDS ORDERED: ACETAMINOPHEN 1000 MG/100 ML VIAL IVPB ONE (17:12)
[2021-03-08 17:43] LABS: BASO % 0.5 % (0-2.0); EOS % 1.6 % (0-4.5); HEMATOCRIT 35.1 % (32.4-45.2); HEMOGLOBIN 11.9 GM/dL (10.7-15.3); LYMPH % 33.9 % (8-40); MCH 27.8 pg (25.7-33.7); MCHC 33.9 g/dl (32.0-36.0); MEAN CELL VOLUME 82.2 fl (80-96); MEAN PLT VOLUME 7.7 fl (7.5-11.1); MONO % 9.7 % (3.8-10.2); NEUT % 54.3 % (42.8-82.8); PLATELET COUNT 244 10^3/uL (134-434); RBC 4.27 M/mm3 (3.60-5.2); RDW 14.7 % (11.6-15.6); WHITE BLOOD COUNT 9.2 K/mm3 (4.0-10.0)
[2021-03-08] MEDS ORDERED: ACETAMINOPHEN INJECTION 100 ML IVPB ONE (17:50)
[2021-03-08 17:59] LABS: CHLORIDE 106 mmol/L (98-107); SODIUM 141 mmol/L (136-145)
[2021-03-08 18:01] LABS: CALCIUM 8.9 mg/dL (8.5-10.1)
[2021-03-08 18:02] LABS: ALBUMIN 3.6 g/dl (3.4-5.0); ANION GAP 12 MMOL/L (8-16); BLOOD UREA NITROGEN 16.2 mg/dL (7-18); CO2 23 mmol/L (21-32); GLUCOSE,RANDOM 116 mg/dL (74-106)
[2021-03-08 18:05] LABS: CREATININE 1.3 mg/dL (0.55-1.3); SGOT/AST 11 U/L (15-37); SGPT/ALT 12 U/L (13-61)
[2021-03-08 18:07] LABS: BILIRUBIN,TOTAL 0.6 mg/dL (0.2-1); TOT PROT 7.9 g/dl (6.4-8.2)
[2021-03-08 18:08] LABS: ALK PHOS 76 U/L (45-117)
[2021-03-08] MEDS ORDERED: POTASSIUM CHLORIDE TABS 20 MEQ TABLET.ER (FP) PO ONE ×2 (18:09→18:53)
[2021-03-08] MEDS ORDERED: KETOROLAC TROMETHAMINE 15 MG/ML VIAL IVPUSH ONE (18:39)
[2021-03-08] MEDS ORDERED: KETOROLAC TROMETHAMINE 15 MG/ML VIAL ONE (18:53)
[2021-03-09 07:44] LABS: ALBUMIN 3.2 g/dl (3.4-5.0); BLOOD UREA NITROGEN 11.6 mg/dL (7-18); CALCIUM 8.7 mg/dL (8.5-10.1)
[2021-03-09 07:47] LABS: CREATININE 0.9 mg/dL (0.55-1.3)
[2021-03-09 07:49] LABS: BILIRUBIN,TOTAL 0.5 mg/dL (0.2-1)
[2021-03-09 08:24] LABS: BASO % 0.5 % (0-2.0); HEMATOCRIT 33.4 % (32.4-45.2); HEMOGLOBIN 11.2 GM/dL (10.7-15.3); LYMPH % 32.1 % (8-40); MCH 28.2 pg (25.7-33.7); MCHC 33.6 g/dl (32.0-36.0); MEAN PLT VOLUME 8.4 fl (7.5-11.1); NEUT % 52.4 % (42.8-82.8); PLATELET COUNT 245 10^3/uL (134-434); RBC 3.98 M/mm3 (3.60-5.2); RDW 14.5 % (11.6-15.6)
[2021-03-09] MEDS ORDERED: LIDOCAINE 5% TOPICAL PATCH TP SCH (10:00)
[2021-03-09] MEDS ORDERED: METOPROLOL TARTRATE 25 MG TABLET (FP) ONE (10:30)
[2021-03-09] MEDS ORDERED: LIDOCAINE 5% TOPICAL PATCH ONE (10:30)
[2021-03-09] MEDS: METOPROLOL TARTRATE 25 MG TABLET (FP) PO SCH ×2 (15:44→20:59)
[2021-03-09] MEDS: GABAPENTIN 100 MG CAPSULE PO SCH ×2 (16:49→20:59)
[2021-03-09] MEDS: ACETAMINOPHEN 325 MG TABLET (FP) PO PRN (16:50)
[2021-03-09] MEDS ORDERED: FLU VACC QS2021-22(6MOS UP)/PF 60 MCG/0.5 ML SYRINGE IM ONE (17:27)
[2021-03-09] MEDS: ATORVASTATIN CA 10 MG TABLET (FP) PO SCH (20:59)
[2021-03-09] MEDS ORDERED: LIDOCAINE PATCH REMOVAL MC SCH (22:00)
[2021-03-10] MEDS: GABAPENTIN 100 MG CAPSULE PO SCH ×3 (05:38→21:51)
[2021-03-10] MEDS: ACETAMINOPHEN 325 MG TABLET (FP) PO PRN (10:14)
[2021-03-10] MEDS: LIDOCAINE 5% TOPICAL PATCH TP SCH (10:15)
[2021-03-10] MEDS: METOPROLOL TARTRATE 25 MG TABLET (FP) PO SCH ×2 (10:15→21:52)
[2021-03-10] MEDS: ATORVASTATIN CA 10 MG TABLET (FP) PO SCH (21:51)
[2021-03-10] MEDS ORDERED: LIDOCAINE PATCH REMOVAL MC SCH (22:00)
[2021-03-11] MEDS: GABAPENTIN 100 MG CAPSULE PO SCH (06:52)
[2021-03-11] MEDS ORDERED: LEVOTHYROXINE NA 100 MCG TABLET (FP) PO SCH (07:00)
[2021-03-11] MEDS ORDERED: GABAPENTIN 100 MG CAPSULE PO SCH (08:35)
[2021-03-11 09:05] VITALS: PULSE 90
[2021-03-11] MEDS: LIDOCAINE 5% TOPICAL PATCH TP SCH (09:07)
[2021-03-11] MEDS: ACETAMINOPHEN 325 MG TABLET (FP) PO PRN (09:07)
[2021-03-11] MEDS: METOPROLOL TARTRATE 25 MG TABLET (FP) PO SCH (09:07)
[2021-03-11 13:02] VITALS: BMI 23.6
[2021-03-11 14:04] VITALS: BP 103/59; TEMP 97.4
== END 2021-03-11 17:00 | disposition home or self-care (01) ==
LOC: JER 13:54 → JERBED 23:43 → J4S 03-09 14:35
PROVIDERS: ATTEND Family Medicine
PROC: 3E033NZ Introduction of Analgesics, Hypnotics, Sedatives into Peripheral Vein, Percutaneous Approach (ICD-10-PCS; principal; 2021-03-08)
PROC: 3E0333Z Introduction of Anti-inflammatory into Peripheral Vein, Percutaneous Approach (ICD-10-PCS; 2021-03-08)
PROC: 3E0337Z Introduction of Electrolytic and Water Balance Substance into Peripheral Vein, Percutaneous Approach (ICD-10-PCS; 2021-03-08)
DX: I10 Essential (primary) hypertension (principal); E78.5 Hyperlipidemia, unspecified; E11.9 Type 2 diabetes mellitus without complications; M19.90 Unspecified osteoarthritis, unspecified site; Z86.73 Personal history of transient ischemic attack (TIA), and cerebral infarction without residual deficits; Z87.891 Personal history of nicotine dependence; I71.2 Thoracic aortic aneurysm, without rupture; Z20.822 Contact with and (suspected) exposure to COVID-19
CPT/HCPCS: 36415; 71045-TC-FY; 71260-TC; 72131-TC; 80053; 82085; 83874; 84443; 84484; 85025; 93005; 93010; 96374; 96375; 97116-GP; 97161-GP; 99285-25; C9803; G0378; J0131; Q9967; U0003; U0005

== ENCOUNTER 2021-09-28 19:36 | Inpatient (IN) | payer BC ==
[2021-09-28] MEDS ORDERED: SODIUM CHLORIDE 500 ML IV STA (22:29)
[2021-09-29 00:09] LABS: EPI CELLS 12 /uL (0-25.1); HYALINE CASTS 0 /uL (0-3.1); URINE APPEARANCE CLEAR; URINE BACTERIA 236 /uL (0-1359); URINE BILIRUBIN NEGATIVE (NEGATIVE); URINE COLOR YELLOW; URINE GLUCOSE (UA) NEGATIVE (NEGATIVE); URINE KETONE NEGATIVE (NEGATIVE); URINE LEUK ESTERASE NEGATIVE (NEGATIVE); URINE NITRITE NEGATIVE (NEGATIVE); URINE PROTEIN 1+ (NEGATIVE); URINE RBC 85 /uL (0-23.9); URINE UROBILINOGEN 0.2 mg/dL (0.2-1.0); URINE WBC 24 /uL (0-25.8)
[2021-09-29 00:25] LABS: BASO % 1.3 % (0-2.0); EOS % 0.3 % (0-4.5); HEMATOCRIT 38.3 % (32.4-45.2); HEMOGLOBIN 12.9 GM/dL (10.7-15.3); LYMPH % 23.6 % (8-40); MCHC 33.7 g/dl (32.0-36.0); MEAN CELL VOLUME 86.1 fl (80-96); MEAN PLT VOLUME 7.9 fl (7.5-11.1); MONO % 9.7 % (3.8-10.2); NEUT % 65.1 % (42.8-82.8); PLATELET COUNT 198 10^3/uL (134-434); RBC 4.44 M/mm3 (3.60-5.2); RDW 14.9 % (11.6-15.6); WHITE BLOOD COUNT 7.7 K/mm3 (4.0-10.0)
[2021-09-29 00:37] LABS: ALBUMIN 3.7 g/dl (3.4-5.0); CALCIUM 9.8 mg/dL (8.5-10.1)
[2021-09-29 00:38] LABS: BLOOD UREA NITROGEN 19.6 mg/dL (7-18)
[2021-09-29 00:41] LABS: CREATININE 1.1 mg/dL (0.55-1.3)
[2021-09-29 00:42] LABS: BILIRUBIN,TOTAL 0.5 mg/dL (0.2-1); TOT PROT 7.9 g/dl (6.4-8.2)
[2021-09-29 00:45] LABS: N-TERMINAL BNP 2055.4 pg/ml (5-450)
[2021-09-29] MEDS ORDERED: ASPIRIN 81 MG CHEWABLE TABLETS PO ONE (01:02)
[2021-09-29] MEDS ORDERED: ASPIRIN 81 MG CHEWABLE TABLETS ONE (01:13)
[2021-09-29] MEDS ORDERED: CEFTRIAXONE 1,000 MG in DEXTROSE 5%-WATER - 50 ML IVPB STA (02:01)
[2021-09-29] MEDS ORDERED: FUROSEMIDE 40 MG/4 ML INJECTABLE VIAL IVPUSH STA (02:03)
[2021-09-29] MEDS ORDERED: CEFTRIAXONE 1 GM/50 ML BAG ONE (02:54)
[2021-09-29] MEDS ORDERED: FUROSEMIDE 40 MG/4 ML INJECTABLE VIAL ONE (02:54)
[2021-09-29] MEDS ORDERED: ACETAMINOPHEN 325 MG TABLET (FP) PO PRN (05:23)
[2021-09-29] MEDS ORDERED: POLYETHYLENE GLYCOL (HEALTHYLAX) 3350 17 GM PACKET PO PRN (05:23)
[2021-09-29] MEDS ORDERED: METOPROLOL TARTRATE 5 MG/5 ML VIAL IVPUSH ONE (05:25)
[2021-09-29] MEDS ORDERED: METOPROLOL TARTRATE 5 MG/5 ML VIAL ONE (06:56)
[2021-09-29] MEDS: INSULIN SLIDING SCALE (NOVOLOG) 1 VIAL SQ SCH ×4 (07:44→21:32)
[2021-09-29] MEDS ORDERED: ENOXAPARIN NA (PORCINE) 40 MG/0.4 ML DISP.SYRIN SQ ONE (09:22)
[2021-09-29] MEDS: ENOXAPARIN NA (PORCINE) 40 MG/0.4 ML DISP.SYRIN SQ SCH (11:15)
[2021-09-29] MEDS ORDERED: PATIENT'S OWN MEDICATION (NON-FORMULARY) (Omeprazole [Omeprazole] 10 MG Capsule.Dr) PO PRN (11:51)
[2021-09-29] MEDS ORDERED: amLODIPine BESYLATE 5 MG TABLET (FP) ONE (13:15)
[2021-09-29] MEDS: amLODIPine BESYLATE 5 MG TABLET (FP) PO SCH (13:20)
[2021-09-29] MEDS: ATORVASTATIN CA 20 MG TABLET (FP) PO SCH (21:33)
[2021-09-29] MEDS: METOPROLOL TARTRATE 25 MG TABLET (FP) PO SCH (21:33)
[2021-09-30] MEDS: LEVOTHYROXINE NA 100 MCG TABLET (FP) PO SCH (06:03)
[2021-09-30] MEDS: INSULIN SLIDING SCALE (NOVOLOG) 1 VIAL SQ SCH ×4 (06:09→21:19)
[2021-09-30] MEDS ORDERED: cefTRIAXone SODIUM 1 GM VIAL ONE (09:01)
[2021-09-30] MEDS ORDERED: DEXTROSE 5%-WATER - 50 ML IVPB ONE (09:02)
[2021-09-30] MEDS: ENOXAPARIN NA (PORCINE) 40 MG/0.4 ML DISP.SYRIN SQ SCH (09:26)
[2021-09-30] MEDS: METOPROLOL TARTRATE 25 MG TABLET (FP) PO SCH ×3 (09:26→22:00)
[2021-09-30] MEDS: amLODIPine BESYLATE 5 MG TABLET (FP) PO SCH (09:26)
[2021-09-30 09:36] LABS: BASO % 1.2 % (0-2.0); EOS % 5.1 % (0-4.5); HEMATOCRIT 30.6 % (32.4-45.2); HEMOGLOBIN 10.5 GM/dL (10.7-15.3); LYMPH % 32.9 % (8-40); MCH 29.3 pg (25.7-33.7); MCHC 34.4 g/dl (32.0-36.0); MEAN CELL VOLUME 85.2 fl (80-96); MEAN PLT VOLUME 7.7 fl (7.5-11.1); NEUT % 48.8 % (42.8-82.8); PLATELET COUNT 172 10^3/uL (134-434); RBC 3.59 M/mm3 (3.60-5.2); RDW 14.9 % (11.6-15.6); WHITE BLOOD COUNT 5.3 K/mm3 (4.0-10.0)
[2021-09-30 09:57] LABS: CALCIUM 8.8 mg/dL (8.5-10.1)
[2021-09-30 09:58] LABS: BLOOD UREA NITROGEN 23.9 mg/dL (7-18)
[2021-09-30] MEDS ORDERED: CYANOCOBALAMIN (VITAMIN B-12) 1000 MCG/1 ML VIAL IM SCH (10:00)
[2021-09-30 10:01] LABS: CREATININE 1.1 mg/dL (0.55-1.3)
[2021-09-30] MEDS: CEFTRIAXONE 1 GM in DEXTROSE 5%-WATER - 50 ML IVPB SCH (10:46)
[2021-09-30 15:39] LABS: HEMATOCRIT 30.9 % (32.4-45.2); HEMOGLOBIN 10.4 GM/dL (10.7-15.3); MCHC 33.6 g/dl (32.0-36.0); MEAN CELL VOLUME 86.2 fl (80-96); MEAN PLT VOLUME 7.5 fl (7.5-11.1); PLATELET COUNT 183 10^3/uL (134-434); RBC 3.59 M/mm3 (3.60-5.2); RDW 14.6 % (11.6-15.6); WHITE BLOOD COUNT 5.2 K/mm3 (4.0-10.0)
[2021-09-30] MEDS: ATORVASTATIN CA 20 MG TABLET (FP) PO SCH ×2 (21:18→22:00)
[2021-10-01] MEDS: LEVOTHYROXINE NA 100 MCG TABLET (FP) PO SCH (06:01)
[2021-10-01] MEDS: INSULIN SLIDING SCALE (NOVOLOG) 1 VIAL SQ SCH ×4 (06:03→21:38)
[2021-10-01 08:54] LABS: BASO % 0.7 % (0-2.0); EOS % 6.2 % (0-4.5); HEMATOCRIT 32.4 % (32.4-45.2); HEMOGLOBIN 10.8 GM/dL (10.7-15.3); LYMPH % 31.5 % (8-40); MCH 28.7 pg (25.7-33.7); MCHC 33.4 g/dl (32.0-36.0); MEAN PLT VOLUME 7.7 fl (7.5-11.1); MONO % 12.7 % (3.8-10.2); NEUT % 48.9 % (42.8-82.8); PLATELET COUNT 185 10^3/uL (134-434); RBC 3.77 M/mm3 (3.60-5.2); RDW 14.4 % (11.6-15.6); WHITE BLOOD COUNT 4.9 K/mm3 (4.0-10.0)
[2021-10-01 09:16] LABS: CALCIUM 8.8 mg/dL (8.5-10.1)
[2021-10-01 09:17] LABS: BLOOD UREA NITROGEN 20.4 mg/dL (7-18)
[2021-10-01 09:20] LABS: CREATININE 1.1 mg/dL (0.55-1.3)
[2021-10-01 09:21] LABS: BILIRUBIN,TOTAL 0.4 mg/dL (0.2-1); TOT PROT 6.1 g/dl (6.4-8.2)
[2021-10-01 09:47] LABS: ALBUMIN 2.8 g/dl (3.4-5.0)
[2021-10-01] MEDS ORDERED: cefTRIAXone SODIUM 1 GM VIAL ONE (10:01)
[2021-10-01] MEDS ORDERED: DEXTROSE 5%-WATER - 50 ML IVPB ONE (10:01)
[2021-10-01] MEDS: ENOXAPARIN NA (PORCINE) 40 MG/0.4 ML DISP.SYRIN SQ SCH (10:33)
[2021-10-01] MEDS: METOPROLOL TARTRATE 25 MG TABLET (FP) PO SCH ×2 (10:33→21:34)
[2021-10-01] MEDS: ASPIRIN COATED 81 MG TABLET.EC PO SCH (10:33)
[2021-10-01] MEDS: CEFTRIAXONE 1 GM in DEXTROSE 5%-WATER - 50 ML IVPB SCH (10:33)
[2021-10-01] MEDS: amLODIPine BESYLATE 5 MG TABLET (FP) PO SCH (10:33)
[2021-10-01] MEDS: CLOPIDOGREL BISULFATE 75 MG TABLET (FP) PO SCH (17:30)
[2021-10-01] MEDS: ATORVASTATIN CA 20 MG TABLET (FP) PO SCH (21:34)
[2021-10-01] MEDS: CEPHALEXIN MONOHYDRATE 500 MG CAPSULE (UD) PO SCH (21:34)
[2021-10-01 22:27] VITALS: BMI 19.7
[2021-10-02] MEDS: LEVOTHYROXINE NA 100 MCG TABLET (FP) PO SCH (06:03)
[2021-10-02] MEDS: INSULIN SLIDING SCALE (NOVOLOG) 1 VIAL SQ SCH ×4 (06:04→21:46)
[2021-10-02] MEDS: ENOXAPARIN NA (PORCINE) 40 MG/0.4 ML DISP.SYRIN SQ SCH (09:22)
[2021-10-02] MEDS: METOPROLOL TARTRATE 25 MG TABLET (FP) PO SCH ×2 (09:23→21:42)
[2021-10-02] MEDS: ASPIRIN COATED 81 MG TABLET.EC PO SCH (09:23)
[2021-10-02] MEDS: CEPHALEXIN MONOHYDRATE 500 MG CAPSULE (UD) PO SCH ×2 (09:23→21:42)
[2021-10-02] MEDS: amLODIPine BESYLATE 5 MG TABLET (FP) PO SCH (09:23)
[2021-10-02] MEDS: CLOPIDOGREL BISULFATE 75 MG TABLET (FP) PO SCH (09:23)
[2021-10-02] MEDS: ATORVASTATIN CA 20 MG TABLET (FP) PO SCH (21:42)
[2021-10-03] MEDS: INSULIN SLIDING SCALE (NOVOLOG) 1 VIAL SQ SCH ×4 (06:20→21:22)
[2021-10-03] MEDS: LEVOTHYROXINE NA 100 MCG TABLET (FP) PO SCH (06:20)
[2021-10-03] MEDS: CEPHALEXIN MONOHYDRATE 500 MG CAPSULE (UD) PO SCH ×2 (09:35→21:22)
[2021-10-03] MEDS: ASPIRIN COATED 81 MG TABLET.EC PO SCH (09:35)
[2021-10-03] MEDS: METOPROLOL TARTRATE 25 MG TABLET (FP) PO SCH ×2 (09:35→21:22)
[2021-10-03] MEDS: amLODIPine BESYLATE 5 MG TABLET (FP) PO SCH (09:35)
[2021-10-03] MEDS: ENOXAPARIN NA (PORCINE) 40 MG/0.4 ML DISP.SYRIN SQ SCH (09:36)
[2021-10-03] MEDS: ATORVASTATIN CA 20 MG TABLET (FP) PO SCH (21:22)
[2021-10-04] MEDS: LEVOTHYROXINE NA 100 MCG TABLET (FP) PO SCH (06:15)
[2021-10-04] MEDS: INSULIN SLIDING SCALE (NOVOLOG) 1 VIAL SQ SCH ×2 (06:15→12:03)
[2021-10-04] MEDS: METOPROLOL TARTRATE 25 MG TABLET (FP) PO SCH (12:02)
[2021-10-04] MEDS: ENOXAPARIN NA (PORCINE) 40 MG/0.4 ML DISP.SYRIN SQ SCH (12:02)
[2021-10-04] MEDS: CEPHALEXIN MONOHYDRATE 500 MG CAPSULE (UD) PO SCH (12:02)
[2021-10-04] MEDS: ASPIRIN COATED 81 MG TABLET.EC PO SCH (12:02)
[2021-10-04] MEDS: amLODIPine BESYLATE 5 MG TABLET (FP) PO SCH (12:03)
[2021-10-04 14:12] VITALS: BP 152/90; PULSE 77; TEMP 97.1
== END 2021-10-04 18:28 | disposition home or self-care (01) | DRG 65 ==
LOC: JER 19:36 → JERBED 09-29 05:26 → J4S 09-29 20:26
PROVIDERS: ADMIT Family Medicine; ATTEND Family Medicine
DX: I63.9 Cerebral infarction, unspecified (principal); N39.0 Urinary tract infection, site not specified; I25.10 Atherosclerotic heart disease of native coronary artery without angina pectoris; E03.9 Hypothyroidism, unspecified; E11.9 Type 2 diabetes mellitus without complications; I10 Essential (primary) hypertension; R47.01 Aphasia; E78.5 Hyperlipidemia, unspecified; I71.4 Abdominal aortic aneurysm, without rupture; I71.2 Thoracic aortic aneurysm, without rupture; R41.82 Altered mental status, unspecified; R77.8 Other specified abnormalities of plasma proteins; M48.061 Spinal stenosis, lumbar region without neurogenic claudication; R26.2 Difficulty in walking, not elsewhere classified
CPT/HCPCS: 36415; 70450-TC; 70551-TC; 71045-TC-FY; 71250-TC; 74176-TC; 80048; 80053; 81003; 82607; 82728; 82962; 83540; 83550; 83735; 83880; 84443; 84484; 85025; 85027; 87040; 87086; 93005; 93010; 93306-TC; 93880-TC; 97116-GP; 97161-GP; 99285-25; C9803-CS; U0003; U0005

== ENCOUNTER 2021-11-13 14:28 | Inpatient (IN) | payer BC ==
[2021-11-13] MEDS ORDERED: SODIUM CHLORIDE 1,000 ML IV SCH (16:00)
[2021-11-13 17:00] LABS: BASO % 0.6 % (0-2.0); EOS % 1.2 % (0-4.5); HEMATOCRIT 35.2 % (32.4-45.2); HEMOGLOBIN 11.8 GM/dL (10.7-15.3); MCH 27.7 pg (25.7-33.7); MCHC 33.4 g/dl (32.0-36.0); MEAN PLT VOLUME 7.6 fl (7.5-11.1); MONO % 10.5 % (3.8-10.2); NEUT % 74.7 % (42.8-82.8); PLATELET COUNT 147 10^3/uL (134-434); RBC 4.24 M/mm3 (3.60-5.2); RDW 13.3 % (11.6-15.6); WHITE BLOOD COUNT 7.1 K/mm3 (4.0-10.0)
[2021-11-13 17:02] LABS: INR 1.15 (0.83-1.09); PROTHROMBIN TIME (PATIENT) 13.3 SEC (9.7-13.0)
[2021-11-13 17:05] LABS: ACTIVATED PTT 30.4 SECONDS (25.2-36.5)
[2021-11-13 17:21] LABS: ALBUMIN 3.4 g/dl (3.4-5.0)
[2021-11-13 17:22] LABS: BLOOD UREA NITROGEN 21.7 mg/dL (7-18)
[2021-11-13 17:24] LABS: CREATININE 1.1 mg/dL (0.55-1.3)
[2021-11-13 17:26] LABS: TOT PROT 7.6 g/dl (6.4-8.2)
[2021-11-13 17:27] LABS: BILIRUBIN,TOTAL 0.5 mg/dL (0.2-1)
[2021-11-13 22:06] LABS: URINE APPEARANCE CLEAR; URINE BILIRUBIN NEGATIVE (NEGATIVE); URINE COLOR YELLOW; URINE GLUCOSE (UA) NEGATIVE (NEGATIVE); URINE KETONE NEGATIVE (NEGATIVE); URINE LEUK ESTERASE NEGATIVE (NEGATIVE); URINE NITRITE NEGATIVE (NEGATIVE); URINE PROTEIN TRACE (NEGATIVE); URINE UROBILINOGEN 0.2 mg/dL (0.2-1.0)
[2021-11-13] MEDS ORDERED: DEXAMETHASONE SOD PHOSPHATE 4 MG/1 ML VIAL IVPUSH ONE (22:11)
[2021-11-13] MEDS ORDERED: DEXAMETHASONE SOD PHOSPHATE 10 MG/1 ML VIAL ONE (22:27)
[2021-11-13] MEDS ORDERED: REMDESIVIR 200 MG in SODIUM CHLORIDE 250 ML IVPB ONE (23:00)
[2021-11-13 23:10] LABS: MAGNESIUM 1.7 mg/dL (1.8-2.4)
[2021-11-14] MEDS ORDERED: POLYETHYLENE GLYCOL (HEALTHYLAX) 3350 17 GM PACKET PO PRN (00:27)
[2021-11-14] MEDS ORDERED: MAGNESIUM SULF 50% (8.12 MEQ/2 ML-1 GM VIAL) IVPB ONE (02:50)
[2021-11-14] MEDS ORDERED: MAGNESIUM SULFATE IN WATER 2 GM/50 ML IVPB IVPB ONE (03:02)
[2021-11-14 08:26] LABS: BASO % 0.4 % (0-2.0); HEMATOCRIT 39.5 % (32.4-45.2); HEMOGLOBIN 12.8 GM/dL (10.7-15.3); LYMPH % 27.1 % (8-40); MCH 27.6 pg (25.7-33.7); MCHC 32.4 g/dl (32.0-36.0); MEAN PLT VOLUME 7.9 fl (7.5-11.1); MONO % 5.4 % (3.8-10.2); NEUT % 67.1 % (42.8-82.8); PLATELET COUNT 131 10^3/uL (134-434); RBC 4.64 M/mm3 (3.60-5.2); RDW 13.5 % (11.6-15.6); WHITE BLOOD COUNT 4.6 K/mm3 (4.0-10.0)
[2021-11-14] MEDS: INSULIN SLIDING SCALE (NOVOLOG) 1 VIAL SQ SCH ×4 (08:31→22:09)
[2021-11-14] MEDS: LEVOTHYROXINE NA 88 MCG TABLET (FP) PO SCH (08:31)
[2021-11-14] MEDS ORDERED: amLODIPine BESYLATE 5 MG TABLET (FP) ONE ×2 (09:57→12:41)
[2021-11-14] MEDS ORDERED: ASPIRIN COATED 81 MG TABLET.EC ONE (09:57)
[2021-11-14] MEDS ORDERED: FAMOTIDINE 20 MG TABLET ONE (09:57)
[2021-11-14] MEDS ORDERED: METOPROLOL TARTRATE 50 MG TABLET (FP) ONE ×2 (09:57→22:00)
[2021-11-14] MEDS ORDERED: DEXAMETHASONE SOD PHOSPHATE 10 MG/1 ML VIAL ONE (09:57)
[2021-11-14] MEDS ORDERED: amLODIPine BESYLATE 5 MG TABLET (FP) PO SCH (10:00)
[2021-11-14] MEDS: DEXAMETHASONE SOD PHOSPHATE 10 MG/1 ML VIAL IVPUSH SCH (10:05)
[2021-11-14] MEDS: METOPROLOL TARTRATE 50 MG TABLET (FP) PO SCH ×2 (10:06→22:09)
[2021-11-14] MEDS: ASPIRIN COATED 81 MG TABLET.EC PO SCH (10:06)
[2021-11-14] MEDS: TRIAMTERENE AND HCTZ - 37.5 MG/25 MG CAPSULE PO SCH (10:09)
[2021-11-14] MEDS: FAMOTIDINE 20 MG TABLET PO SCH (10:09)
[2021-11-14] MEDS: VALSARTAN 160 MG TABLET PO SCH (10:09)
[2021-11-14] MEDS: REMDESIVIR 100 MG in SODIUM CHLORIDE 250 ML IVPB SCH (10:57)
[2021-11-14] MEDS ORDERED: ACETAMINOPHEN 325 MG TABLET (FP) PO PRN (12:33)
[2021-11-14] MEDS ORDERED: amLODIPine BESYLATE 10 MG TABLET (FP) PO SCH (12:38)
[2021-11-14] MEDS ORDERED: amLODIPine BESYLATE 5 MG TABLET (FP) PO ONE (12:45)
[2021-11-14] MEDS ORDERED: MELATONIN 5 MG TABLETS PO PRN (22:35)
[2021-11-14] MEDS ORDERED: MELATONIN 5 MG TABLETS ONE (22:44)
[2021-11-15] MEDS ORDERED: LEVOTHYROXINE NA 88 MCG TABLET (FP) ONE (05:57)
[2021-11-15] MEDS: LEVOTHYROXINE NA 88 MCG TABLET (FP) PO SCH (07:02)
[2021-11-15] MEDS: INSULIN SLIDING SCALE (NOVOLOG) 1 VIAL SQ SCH ×4 (07:59→21:53)
[2021-11-15 08:40] LABS: BASO % 0.1 % (0-2.0); HEMATOCRIT 42.4 % (32.4-45.2); HEMOGLOBIN 14.2 GM/dL (10.7-15.3); LYMPH % 25.7 % (8-40); MCH 27.5 pg (25.7-33.7); MCHC 33.6 g/dl (32.0-36.0); MEAN CELL VOLUME 81.8 fl (80-96); MEAN PLT VOLUME 7.9 fl (7.5-11.1); NEUT % 54.2 % (42.8-82.8); PLATELET COUNT 176 10^3/uL (134-434); RBC 5.18 M/mm3 (3.60-5.2); RDW 13.2 % (11.6-15.6); WHITE BLOOD COUNT 4.2 K/mm3 (4.0-10.0)
[2021-11-15] MEDS ORDERED: DEXAMETHASONE SOD PHOSPHATE 10 MG/1 ML VIAL ONE (08:47)
[2021-11-15] MEDS ORDERED: ASPIRIN COATED 81 MG TABLET.EC ONE (08:47)
[2021-11-15] MEDS ORDERED: amLODIPine BESYLATE 10 MG TABLET (FP) ONE (08:47)
[2021-11-15] MEDS ORDERED: METOPROLOL TARTRATE 50 MG TABLET (FP) ONE (08:47)
[2021-11-15] MEDS ORDERED: FAMOTIDINE 20 MG TABLET ONE (08:47)
[2021-11-15 09:10] LABS: CALCIUM 9.2 mg/dL (8.5-10.1)
[2021-11-15 09:11] LABS: ALBUMIN 3.6 g/dl (3.4-5.0); BLOOD UREA NITROGEN 29.1 mg/dL (7-18)
[2021-11-15 09:14] LABS: CREATININE 1.2 mg/dL (0.55-1.3)
[2021-11-15 09:15] LABS: TOT PROT 8.3 g/dl (6.4-8.2)
[2021-11-15 09:16] LABS: BILIRUBIN,TOTAL 0.5 mg/dL (0.2-1)
[2021-11-15] MEDS: METOPROLOL TARTRATE 50 MG TABLET (FP) PO SCH (09:51)
[2021-11-15] MEDS: FAMOTIDINE 20 MG TABLET PO SCH (09:51)
[2021-11-15] MEDS: VALSARTAN 160 MG TABLET PO SCH (09:51)
[2021-11-15] MEDS: DEXAMETHASONE SOD PHOSPHATE 10 MG/1 ML VIAL IVPUSH SCH (09:51)
[2021-11-15] MEDS: TRIAMTERENE AND HCTZ - 37.5 MG/25 MG CAPSULE PO SCH (09:51)
[2021-11-15] MEDS: ASPIRIN COATED 81 MG TABLET.EC PO SCH (09:51)
[2021-11-15] MEDS: REMDESIVIR 100 MG in SODIUM CHLORIDE 250 ML IVPB SCH (11:41)
[2021-11-15] MEDS ORDERED: METOPROLOL TARTRATE 25 MG TABLET (FP) PO SCH (13:01)
[2021-11-16 00:20] VITALS: BMI 23.1
[2021-11-16] MEDS: LEVOTHYROXINE NA 88 MCG TABLET (FP) PO SCH (06:13)
[2021-11-16] MEDS: INSULIN SLIDING SCALE (NOVOLOG) 1 VIAL SQ SCH ×4 (06:31→21:18)
[2021-11-16 11:02] LABS: BASO % 0.2 % (0-2.0); HEMATOCRIT 35.2 % (32.4-45.2); LYMPH % 33.5 % (8-40); MCH 27.8 pg (25.7-33.7); MCHC 34.1 g/dl (32.0-36.0); MEAN CELL VOLUME 81.5 fl (80-96); MEAN PLT VOLUME 8.5 fl (7.5-11.1); MONO % 14.7 % (3.8-10.2); NEUT % 51.6 % (42.8-82.8); PLATELET COUNT 173 10^3/uL (134-434); RBC 4.32 M/mm3 (3.60-5.2); RDW 13.3 % (11.6-15.6); WHITE BLOOD COUNT 5.3 K/mm3 (4.0-10.0)
[2021-11-16] MEDS: FAMOTIDINE 20 MG TABLET PO SCH (11:10)
[2021-11-16] MEDS: VALSARTAN 160 MG TABLET PO SCH (11:11)
[2021-11-16] MEDS: METOPROLOL TARTRATE 50 MG TABLET (FP) PO SCH ×2 (11:11→21:16)
[2021-11-16] MEDS: amLODIPine BESYLATE 5 MG TABLET (FP) PO SCH (11:11)
[2021-11-16] MEDS: ASPIRIN COATED 81 MG TABLET.EC PO SCH (11:11)
[2021-11-16] MEDS: DEXAMETHASONE SOD PHOSPHATE 10 MG/1 ML VIAL IVPUSH SCH (11:12)
[2021-11-16] MEDS: TRIAMTERENE AND HCTZ - 37.5 MG/25 MG CAPSULE PO SCH (11:13)
[2021-11-16] MEDS: REMDESIVIR 100 MG in SODIUM CHLORIDE 250 ML IVPB SCH (11:15)
[2021-11-16 12:46] LABS: BLOOD UREA NITROGEN 49.9 mg/dL (7-18)
[2021-11-16 12:47] LABS: CALCIUM 8.8 mg/dL (8.5-10.1)
[2021-11-16 12:51] LABS: CREATININE 1.5 mg/dL (0.55-1.3)
[2021-11-16] MEDS ORDERED: SODIUM CHLORIDE 250 ML IV STA (14:44)
[2021-11-17] MEDS: INSULIN SLIDING SCALE (NOVOLOG) 1 VIAL SQ SCH ×4 (06:34→21:40)
[2021-11-17] MEDS: LEVOTHYROXINE NA 88 MCG TABLET (FP) PO SCH (06:35)
[2021-11-17 09:46] LABS: BASO % 0.2 % (0-2.0); HEMATOCRIT 34.8 % (32.4-45.2); HEMOGLOBIN 11.6 GM/dL (10.7-15.3); LYMPH % 33.5 % (8-40); MCH 27.4 pg (25.7-33.7); MCHC 33.5 g/dl (32.0-36.0); MEAN PLT VOLUME 8.4 fl (7.5-11.1); MONO % 14.3 % (3.8-10.2); PLATELET COUNT 156 10^3/uL (134-434); RBC 4.24 M/mm3 (3.60-5.2); RDW 12.9 % (11.6-15.6); WHITE BLOOD COUNT 4.5 K/mm3 (4.0-10.0)
[2021-11-17] MEDS ORDERED: TRIAMTERENE 50 MG CAPSULE PO SCH (10:00)
[2021-11-17 10:11] LABS: CALCIUM 8.4 mg/dL (8.5-10.1)
[2021-11-17 10:12] LABS: BLOOD UREA NITROGEN 55.4 mg/dL (7-18)
[2021-11-17 10:14] LABS: CREATININE 1.4 mg/dL (0.55-1.3)
[2021-11-17 10:16] LABS: BILIRUBIN,TOTAL 0.3 mg/dL (0.2-1); TOT PROT 6.3 g/dl (6.4-8.2)
[2021-11-17] MEDS ORDERED: SODIUM CHLORIDE 0.9% 500 ML INFUS.BAG IV ONE (10:24)
[2021-11-17 10:37] LABS: ALBUMIN 2.8 g/dl (3.4-5.0)
[2021-11-17] MEDS: FAMOTIDINE 20 MG TABLET PO SCH (12:54)
[2021-11-17] MEDS: METOPROLOL TARTRATE 50 MG TABLET (FP) PO SCH ×2 (12:54→21:36)
[2021-11-17] MEDS: DEXAMETHASONE SOD PHOSPHATE 10 MG/1 ML VIAL IVPUSH SCH (12:54)
[2021-11-17] MEDS: SPIRONOLACTONE 25 MG TABLET PO SCH (12:55)
[2021-11-17] MEDS: amLODIPine BESYLATE 5 MG TABLET (FP) PO SCH (12:55)
[2021-11-17] MEDS: ASPIRIN COATED 81 MG TABLET.EC PO SCH (12:55)
[2021-11-17] MEDS: REMDESIVIR 100 MG in SODIUM CHLORIDE 250 ML IVPB SCH (13:54)
[2021-11-18] MEDS ORDERED: DEXAMETHASONE 4 MG TABLET (FP) PO ONE (06:00)
[2021-11-18] MEDS: INSULIN SLIDING SCALE (NOVOLOG) 1 VIAL SQ SCH (06:35)
[2021-11-18] MEDS: LEVOTHYROXINE NA 88 MCG TABLET (FP) PO SCH (06:35)
[2021-11-18] MEDS ORDERED: INSULIN (NOVOLOG) ASPART 100 UNITS/ML 10ML VIAL ONE (06:42)
[2021-11-18] MEDS: METOPROLOL TARTRATE 50 MG TABLET (FP) PO SCH (09:50)
[2021-11-18] MEDS: amLODIPine BESYLATE 5 MG TABLET (FP) PO SCH (09:50)
[2021-11-18] MEDS: FAMOTIDINE 20 MG TABLET PO SCH (09:50)
[2021-11-18] MEDS: SPIRONOLACTONE 25 MG TABLET PO SCH (09:50)
[2021-11-18] MEDS: ASPIRIN COATED 81 MG TABLET.EC PO SCH (09:50)
[2021-11-18 11:47] VITALS: BP 119/60; PULSE 60; TEMP 99.1
== END 2021-11-18 12:26 | disposition home or self-care (01) | DRG 177 ==
LOC: JER 14:28 → INTOOBSV 19:10 → JERBED 19:10 → OBSVTOIN 11-14 14:47 → J6S 11-15 19:05
PROVIDERS: ADMIT Internal Medicine; ATTEND Internal Medicine
PROC: XW033E5 Introduction of Remdesivir Anti-infective into Peripheral Vein, Percutaneous Approach, New Technology Group 5 (ICD-10-PCS; principal; 2021-11-13)
PROC: 3E0333Z Introduction of Anti-inflammatory into Peripheral Vein, Percutaneous Approach (ICD-10-PCS; 2021-11-13)
DX: U07.1 COVID-19 (principal); J12.82 Pneumonia due to coronavirus disease 2019; G92.8 Other toxic encephalopathy; I69.354 Hemiplegia and hemiparesis following cerebral infarction affecting left non-dominant side; N17.9 Acute kidney failure, unspecified; E78.5 Hyperlipidemia, unspecified; E03.9 Hypothyroidism, unspecified; E11.9 Type 2 diabetes mellitus without complications; R42 Dizziness and giddiness; I16.0 Hypertensive urgency; I11.0 Hypertensive heart disease with heart failure; I50.9 Heart failure, unspecified; I25.10 Atherosclerotic heart disease of native coronary artery without angina pectoris; M19.90 Unspecified osteoarthritis, unspecified site; I71.4 Abdominal aortic aneurysm, without rupture; I71.2 Thoracic aortic aneurysm, without rupture; P84 Other problems with newborn
CPT/HCPCS: 36415; 70450-TC; 71045-TC-FY; 80048; 80053; 80061; 81003; 82550; 82728; 82962; 83036; 83615; 83735; 84484; 85025; 85379; 85610; 85730; 86140; 86850; 86900; 86901; 93005; 93010; 93970-TC; 97116-GP; 97162-GP; 99285-25; C9399; C9803-CS; G0378; J1100; U0003; U0005

== ENCOUNTER 2022-01-04 17:56 | Inpatient (IN) | payer BC, OTHER ==
[2022-01-04] MEDS ORDERED: SODIUM CHLORIDE 1,000 ML IV SCH (18:45)
[2022-01-04] MEDS ORDERED: ASPIRIN 81 MG CHEWABLE TABLETS PO ONE (20:19)
[2022-01-04] MEDS ORDERED: ASPIRIN 81 MG CHEWABLE TABLETS ONE (20:39)
[2022-01-04 21:16] LABS: BASO % 1.4 % (0-2.0); EOS % 8.2 % (0-4.5); HEMATOCRIT 37.2 % (32.4-45.2); HEMOGLOBIN 12.5 GM/dL (10.7-15.3); LYMPH % 29.9 % (8-40); MCHC 33.6 g/dl (32.0-36.0); MEAN CELL VOLUME 83.3 fl (80-96); MEAN PLT VOLUME 7.7 fl (7.5-11.1); MONO % 10.7 % (3.8-10.2); NEUT % 49.8 % (42.8-82.8); PLATELET COUNT 188 10^3/uL (134-434); RBC 4.47 M/mm3 (3.60-5.2); RDW 15.9 % (11.6-15.6); WHITE BLOOD COUNT 7.7 K/mm3 (4.0-10.0)
[2022-01-04 21:24] LABS: INR 1.09 (0.83-1.09); PROTHROMBIN TIME (PATIENT) 12.5 SEC (9.7-13.0)
[2022-01-04 21:27] LABS: ACTIVATED PTT 34.5 SECONDS (25.2-36.5)
[2022-01-04 21:37] LABS: CALCIUM 9.3 mg/dL (8.5-10.1)
[2022-01-04 21:38] LABS: ALBUMIN 3.7 g/dl (3.4-5.0); BLOOD UREA NITROGEN 20.5 mg/dL (7-18)
[2022-01-04 21:40] LABS: CREATININE 1.4 mg/dL (0.55-1.3)
[2022-01-04 21:42] LABS: BILIRUBIN,TOTAL 0.5 mg/dL (0.2-1); TOT PROT 7.9 g/dl (6.4-8.2)
[2022-01-05] MEDS: HEPARIN NA (PORCINE) 5,000 UNITS/ML 1ML VIAL SQ SCH ×3 (06:23→21:36)
[2022-01-05] MEDS: LEVOTHYROXINE NA 88 MCG TABLET (FP) PO SCH (06:24)
[2022-01-05 07:25] LABS: BASO % 1.5 % (0-2.0); EOS % 11.5 % (0-4.5); HEMATOCRIT 34.6 % (32.4-45.2); HEMOGLOBIN 11.4 GM/dL (10.7-15.3); LYMPH % 30.2 % (8-40); MCH 27.3 pg (25.7-33.7); MCHC 32.9 g/dl (32.0-36.0); MEAN CELL VOLUME 83.2 fl (80-96); MEAN PLT VOLUME 7.6 fl (7.5-11.1); MONO % 11.9 % (3.8-10.2); NEUT % 44.9 % (42.8-82.8); PLATELET COUNT 180 10^3/uL (134-434); RBC 4.16 M/mm3 (3.60-5.2); RDW 15.7 % (11.6-15.6); WHITE BLOOD COUNT 6.8 K/mm3 (4.0-10.0)
[2022-01-05 07:48] LABS: ALBUMIN 3.1 g/dl (3.4-5.0); BLOOD UREA NITROGEN 19.6 mg/dL (7-18); MAGNESIUM 1.7 mg/dL (1.8-2.4)
[2022-01-05 07:51] LABS: CREATININE 1.3 mg/dL (0.55-1.3); PHOSPHOROUS 4.1 mg/dL (2.5-4.9)
[2022-01-05 07:53] LABS: BILIRUBIN,TOTAL 0.6 mg/dL (0.2-1); TOT PROT 6.6 g/dl (6.4-8.2)
[2022-01-05] MEDS ORDERED: MAGNESIUM SULF 50% (8.12 MEQ/2 ML-1 GM VIAL) IVPB ONE (09:01)
[2022-01-05] MEDS: ASPIRIN COATED 81 MG TABLET.EC PO SCH (09:38)
[2022-01-05] MEDS: ATORVASTATIN CA 80 MG TABLET (FP) PO SCH (21:36)
[2022-01-06] MEDS: HEPARIN NA (PORCINE) 5,000 UNITS/ML 1ML VIAL SQ SCH ×3 (06:15→21:13)
[2022-01-06] MEDS: LEVOTHYROXINE NA 88 MCG TABLET (FP) PO SCH (06:16)
[2022-01-06 07:44] LABS: BASO % 1.4 % (0-2.0); EOS % 13.2 % (0-4.5); HEMOGLOBIN 10.8 GM/dL (10.7-15.3); LYMPH % 33.3 % (8-40); MCH 27.8 pg (25.7-33.7); MCHC 33.6 g/dl (32.0-36.0); MEAN CELL VOLUME 82.8 fl (80-96); MONO % 13.2 % (3.8-10.2); NEUT % 38.9 % (42.8-82.8); PLATELET COUNT 179 10^3/uL (134-434); RBC 3.87 M/mm3 (3.60-5.2); RDW 15.7 % (11.6-15.6); WHITE BLOOD COUNT 6.9 K/mm3 (4.0-10.0)
[2022-01-06 08:13] LABS: ALBUMIN 2.9 g/dl (3.4-5.0); BLOOD UREA NITROGEN 18.2 mg/dL (7-18); CALCIUM 8.4 mg/dL (8.5-10.1); MAGNESIUM 2.1 mg/dL (1.8-2.4)
[2022-01-06 08:16] LABS: CREATININE 1.3 mg/dL (0.55-1.3)
[2022-01-06 08:17] LABS: PHOSPHOROUS 3.9 mg/dL (2.5-4.9)
[2022-01-06 08:18] LABS: TOT PROT 6.4 g/dl (6.4-8.2)
[2022-01-06 08:20] LABS: BILIRUBIN,TOTAL 0.8 mg/dL (0.2-1)
[2022-01-06] MEDS: ASPIRIN COATED 81 MG TABLET.EC PO SCH (09:17)
[2022-01-06] MEDS: CLOPIDOGREL BISULFATE 75 MG TABLET (FP) PO SCH (09:17)
[2022-01-06] MEDS ORDERED: TRIAMTERENE AND HCTZ - 37.5 MG/25 MG CAPSULE PO SCH (11:00)
[2022-01-06 14:02] VITALS: BMI 19.7
[2022-01-06] MEDS: METOPROLOL TARTRATE 50 MG TABLET (FP) PO SCH ×2 (15:06→21:13)
[2022-01-06] MEDS: VALSARTAN 160 MG TABLET PO SCH (15:06)
[2022-01-06] MEDS: ATORVASTATIN CA 80 MG TABLET (FP) PO SCH (21:13)
[2022-01-07 06:25] VITALS: TEMP 98.4
[2022-01-07] MEDS: HEPARIN NA (PORCINE) 5,000 UNITS/ML 1ML VIAL SQ SCH (06:26)
[2022-01-07] MEDS: LEVOTHYROXINE NA 88 MCG TABLET (FP) PO SCH (06:26)
[2022-01-07 09:03] LABS: BASO % 0.3 % (0-2.0); EOS % 15.9 % (0-4.5); HEMATOCRIT 37.6 % (32.4-45.2); HEMOGLOBIN 12.3 GM/dL (10.7-15.3); LYMPH % 37.4 % (8-40); MCH 27.3 pg (25.7-33.7); MCHC 32.6 g/dl (32.0-36.0); MEAN CELL VOLUME 83.6 fl (80-96); MEAN PLT VOLUME 7.9 fl (7.5-11.1); MONO % 10.2 % (3.8-10.2); NEUT % 36.2 % (42.8-82.8); PLATELET COUNT 218 10^3/uL (134-434); RDW 15.7 % (11.6-15.6); WHITE BLOOD COUNT 7.4 K/mm3 (4.0-10.0)
[2022-01-07 09:24] LABS: CALCIUM 9.1 mg/dL (8.5-10.1)
[2022-01-07 09:25] LABS: ALBUMIN 3.2 g/dl (3.4-5.0); BLOOD UREA NITROGEN 17.1 mg/dL (7-18); MAGNESIUM 2.3 mg/dL (1.8-2.4)
[2022-01-07 09:28] LABS: CREATININE 1.3 mg/dL (0.55-1.3); PHOSPHOROUS 3.6 mg/dL (2.5-4.9)
[2022-01-07 09:29] LABS: BILIRUBIN,TOTAL 0.7 mg/dL (0.2-1); TOT PROT 7.1 g/dl (6.4-8.2)
[2022-01-07] MEDS: ASPIRIN COATED 81 MG TABLET.EC PO SCH (10:47)
[2022-01-07] MEDS: CLOPIDOGREL BISULFATE 75 MG TABLET (FP) PO SCH (10:47)
[2022-01-07] MEDS: METOPROLOL TARTRATE 50 MG TABLET (FP) PO SCH (10:47)
[2022-01-07] MEDS: VALSARTAN 160 MG TABLET PO SCH (10:47)
[2022-01-07 11:45] VITALS: BP 153/88; PULSE 68; RESP 16
== END 2022-01-07 13:59 | disposition home or self-care (01) | DRG 64 ==
LOC: JER 17:56 → JERBED 20:21 → J4W 01-05 00:20
PROVIDERS: ADMIT Internal Medicine; ATTEND Internal Medicine
DX: I63.89 Other cerebral infarction (principal); E43 Unspecified severe protein-calorie malnutrition; N17.9 Acute kidney failure, unspecified; R64 Cachexia; Z68.1 Body mass index [BMI] 19.9 or less, adult; E03.9 Hypothyroidism, unspecified; I10 Essential (primary) hypertension; E11.9 Type 2 diabetes mellitus without complications; R29.810 Facial weakness; Z86.73 Personal history of transient ischemic attack (TIA), and cerebral infarction without residual deficits; Z79.84 Long term (current) use of oral hypoglycemic drugs; I71.4 Abdominal aortic aneurysm, without rupture; I11.0 Hypertensive heart disease with heart failure; I50.9 Heart failure, unspecified; Z86.16 Personal history of COVID-19; E11.22 Type 2 diabetes mellitus with diabetic chronic kidney disease; I12.9 Hypertensive chronic kidney disease with stage 1 through stage 4 chronic kidney disease, or unspecified chronic kidney disease; N18.9 Chronic kidney disease, unspecified; R47.1 Dysarthria and anarthria
CPT/HCPCS: 36415; 70450-TC; 70551-TC; 80053; 80061; 82962; 83036; 83735; 84100; 84443; 84484; 85025; 85610; 85730; 86850; 86900; 86901; 93005; 93010; 97116-GP; 97162-GP; 99285-25; C9803-CS; J1644; U0003; U0005

== ENCOUNTER 2022-03-23 23:10 | Observation (INO) | payer BC ==
[2022-03-23 23:31] VITALS: BMI 19.3
[2022-03-24 01:52] LABS: BASO % 1.4 % (0-2.0); EOS % 3.9 % (0-4.5); HEMATOCRIT 31.2 % (32.4-45.2); HEMOGLOBIN 10.4 GM/dL (10.7-15.3); LYMPH % 24.6 % (8-40); MCH 29.4 pg (25.7-33.7); MCHC 33.4 g/dl (32.0-36.0); MEAN CELL VOLUME 88.1 fl (80-96); MEAN PLT VOLUME 7.4 fl (7.5-11.1); MONO % 9.3 % (3.8-10.2); NEUT % 60.8 % (42.8-82.8); PLATELET COUNT 228 10^3/uL (134-434); RBC 3.54 M/mm3 (3.60-5.2); RDW 16.3 % (11.6-15.6); WHITE BLOOD COUNT 8.4 K/mm3 (4.0-10.0)
[2022-03-24 02:02] LABS: INR 1.03 (0.83-1.09); PROTHROMBIN TIME (PATIENT) 11.9 SEC (9.7-13.0)
[2022-03-24 02:04] LABS: ACTIVATED PTT 25.1 SECONDS (25.2-36.5)
[2022-03-24 02:45] LABS: CALCIUM 9.2 mg/dL (8.5-10.1)
[2022-03-24 02:46] LABS: ALBUMIN 3.6 g/dl (3.4-5.0)
[2022-03-24 02:49] LABS: CREATININE 1.8 mg/dL (0.55-1.3)
[2022-03-24 02:50] LABS: BILIRUBIN,TOTAL 0.5 mg/dL (0.2-1)
[2022-03-24 02:55] LABS: BLOOD UREA NITROGEN 40.3 mg/dL (7-18); TOT PROT 7.5 g/dl (6.4-8.2)
[2022-03-24] MEDS ORDERED: LACTATED RINGERS SOLUTION 1000 ML INFUS.BAG IV ONE (03:37)
[2022-03-24] MEDS: SODIUM CHLORIDE 1,000 ML IV SCH (08:00)
[2022-03-24 09:33] LABS: PH,URINE 7.5 (5.0-8.0); URINE APPEARANCE CLEAR; URINE BILIRUBIN NEGATIVE (NEGATIVE); URINE COLOR YELLOW; URINE GLUCOSE (UA) NEGATIVE (NEGATIVE); URINE KETONE NEGATIVE (NEGATIVE); URINE LEUK ESTERASE NEGATIVE (NEGATIVE); URINE NITRITE NEGATIVE (NEGATIVE); URINE PROTEIN NEGATIVE (NEGATIVE); URINE UROBILINOGEN 0.2 mg/dL (0.2-1.0)
[2022-03-25] MEDS: SODIUM CHLORIDE 1,000 ML IV SCH (09:18)
[2022-03-25 12:56] LABS: BASO % 0.9 % (0-2.0); EOS % 5.3 % (0-4.5); HEMATOCRIT 27.8 % (32.4-45.2); HEMOGLOBIN 9.3 GM/dL (10.7-15.3); LYMPH % 27.5 % (8-40); MCH 29.3 pg (25.7-33.7); MCHC 33.3 g/dl (32.0-36.0); MEAN PLT VOLUME 7.4 fl (7.5-11.1); MONO % 11.9 % (3.8-10.2); NEUT % 54.4 % (42.8-82.8); PLATELET COUNT 197 10^3/uL (134-434); RBC 3.16 M/mm3 (3.60-5.2); RDW 15.9 % (11.6-15.6); WHITE BLOOD COUNT 6.8 K/mm3 (4.0-10.0)
[2022-03-25 13:22] LABS: CALCIUM 9.2 mg/dL (8.5-10.1)
[2022-03-25 13:23] LABS: BLOOD UREA NITROGEN 28.5 mg/dL (7-18)
[2022-03-25 13:26] LABS: CREATININE 1.5 mg/dL (0.55-1.3)
[2022-03-25 13:28] LABS: BILIRUBIN,TOTAL 0.6 mg/dL (0.2-1)
[2022-03-25] MEDS: METOPROLOL TARTRATE 50 MG TABLET (FP) PO SCH (21:31)
[2022-03-25] MEDS: ATORVASTATIN CA 40 MG TABLET (FP) PO SCH (21:31)
[2022-03-25] MEDS: metFORMIN HCL 500 MG TABLET (FP) PO SCH (21:32)
[2022-03-26] MEDS: SODIUM CHLORIDE 1,000 ML IV SCH ×2 (00:33→06:36)
[2022-03-26] MEDS: metFORMIN HCL 500 MG TABLET (FP) PO SCH ×2 (06:43→21:53)
[2022-03-26] MEDS: LEVOTHYROXINE NA 88 MCG TABLET (FP) PO SCH (06:43)
[2022-03-26] MEDS: VALSARTAN 160 MG TABLET PO SCH (09:12)
[2022-03-26] MEDS: METOPROLOL TARTRATE 50 MG TABLET (FP) PO SCH ×2 (09:13→21:51)
[2022-03-26] MEDS ORDERED: CLOPIDOGREL BISULFATE 75 MG TABLET (FP) PO SCH (10:00)
[2022-03-26] MEDS ORDERED: ASPIRIN COATED 81 MG TABLET.EC PO SCH (10:00)
[2022-03-26 10:44] LABS: BASO % 0.7 % (0-2.0); EOS % 7.3 % (0-4.5); HEMATOCRIT 29.4 % (32.4-45.2); HEMOGLOBIN 9.8 GM/dL (10.7-15.3); LYMPH % 22.4 % (8-40); MCH 29.3 pg (25.7-33.7); MCHC 33.2 g/dl (32.0-36.0); MEAN CELL VOLUME 88.5 fl (80-96); MEAN PLT VOLUME 7.3 fl (7.5-11.1); MONO % 8.1 % (3.8-10.2); NEUT % 61.5 % (42.8-82.8); PLATELET COUNT 202 10^3/uL (134-434); RBC 3.33 M/mm3 (3.60-5.2); RDW 15.6 % (11.6-15.6); WHITE BLOOD COUNT 6.7 K/mm3 (4.0-10.0)
[2022-03-26 11:07] LABS: ALBUMIN 2.8 g/dl (3.4-5.0); BLOOD UREA NITROGEN 22.5 mg/dL (7-18); CALCIUM 8.7 mg/dL (8.5-10.1)
[2022-03-26 11:10] LABS: CREATININE 1.5 mg/dL (0.55-1.3)
[2022-03-26 11:12] LABS: BILIRUBIN,TOTAL 0.8 mg/dL (0.2-1)
[2022-03-26] MEDS: ATORVASTATIN CA 40 MG TABLET (FP) PO SCH (21:51)
[2022-03-27] MEDS: SODIUM CHLORIDE 1,000 ML IV SCH (05:48)
[2022-03-27] MEDS: LEVOTHYROXINE NA 88 MCG TABLET (FP) PO SCH (06:31)
[2022-03-27] MEDS: metFORMIN HCL 500 MG TABLET (FP) PO SCH (06:31)
[2022-03-27] MEDS: VALSARTAN 160 MG TABLET PO SCH (09:42)
[2022-03-27] MEDS: METOPROLOL TARTRATE 50 MG TABLET (FP) PO SCH ×2 (09:42→22:00)
[2022-03-27 10:02] LABS: BASO % 0.8 % (0-2.0); HEMOGLOBIN 10.2 GM/dL (10.7-15.3); LYMPH % 33.9 % (8-40); MCH 29.3 pg (25.7-33.7); MCHC 32.8 g/dl (32.0-36.0); MEAN CELL VOLUME 89.3 fl (80-96); MONO % 9.3 % (3.8-10.2); PLATELET COUNT 207 10^3/uL (134-434); RBC 3.47 M/mm3 (3.60-5.2); RDW 15.4 % (11.6-15.6); WHITE BLOOD COUNT 7.9 K/mm3 (4.0-10.0)
[2022-03-27 10:23] LABS: CALCIUM 8.5 mg/dL (8.5-10.1)
[2022-03-27 10:24] LABS: ALBUMIN 2.9 g/dl (3.4-5.0); BLOOD UREA NITROGEN 21.2 mg/dL (7-18)
[2022-03-27 10:27] LABS: CREATININE 1.7 mg/dL (0.55-1.3)
[2022-03-27 10:29] LABS: BILIRUBIN,TOTAL 0.6 mg/dL (0.2-1); TOT PROT 6.3 g/dl (6.4-8.2)
[2022-03-27] MEDS: ATORVASTATIN CA 40 MG TABLET (FP) PO SCH (22:00)
[2022-03-27] MEDS: INSULIN SLIDING SCALE (NOVOLOG) 1 VIAL SQ SCH (22:03)
[2022-03-28] MEDS: LEVOTHYROXINE NA 88 MCG TABLET (FP) PO SCH (06:37)
[2022-03-28] MEDS: INSULIN SLIDING SCALE (NOVOLOG) 1 VIAL SQ SCH ×4 (06:44→22:27)
[2022-03-28] MEDS: PANTOPRAZOLE 40 MG TABLET PO SCH (10:11)
[2022-03-28] MEDS: SODIUM CHLORIDE 1,000 ML IV SCH (10:11)
[2022-03-28] MEDS: VALSARTAN 160 MG TABLET PO SCH (10:11)
[2022-03-28] MEDS: METOPROLOL TARTRATE 50 MG TABLET (FP) PO SCH ×2 (10:11→22:27)
[2022-03-28 11:48] LABS: EOS % 9.1 % (0-4.5); HEMATOCRIT 31.3 % (32.4-45.2); HEMOGLOBIN 10.3 GM/dL (10.7-15.3); LYMPH % 22.2 % (8-40); MCHC 32.8 g/dl (32.0-36.0); MEAN CELL VOLUME 88.3 fl (80-96); MEAN PLT VOLUME 7.7 fl (7.5-11.1); MONO % 8.4 % (3.8-10.2); NEUT % 59.3 % (42.8-82.8); PLATELET COUNT 193 10^3/uL (134-434); RBC 3.54 M/mm3 (3.60-5.2); RDW 15.4 % (11.6-15.6); WHITE BLOOD COUNT 5.9 K/mm3 (4.0-10.0)
[2022-03-28 12:23] LABS: CALCIUM 8.9 mg/dL (8.5-10.1)
[2022-03-28 12:24] LABS: ALBUMIN 2.7 g/dl (3.4-5.0); BLOOD UREA NITROGEN 21.9 mg/dL (7-18)
[2022-03-28 12:27] LABS: CREATININE 1.6 mg/dL (0.55-1.3)
[2022-03-28 12:28] LABS: BILIRUBIN,TOTAL 0.4 mg/dL (0.2-1); TOT PROT 5.8 g/dl (6.4-8.2)
[2022-03-28] MEDS: HYDROCORTISONE 2.5% TOPICAL CREAM 30 GM TUBE TP SCH ×2 (14:44→22:26)
[2022-03-28] MEDS: ATORVASTATIN CA 40 MG TABLET (FP) PO SCH (22:27)
[2022-03-29] MEDS: INSULIN SLIDING SCALE (NOVOLOG) 1 VIAL SQ SCH ×4 (06:26→22:10)
[2022-03-29] MEDS: LEVOTHYROXINE NA 88 MCG TABLET (FP) PO SCH (06:27)
[2022-03-29] MEDS: METOPROLOL TARTRATE 50 MG TABLET (FP) PO SCH ×2 (09:51→22:09)
[2022-03-29] MEDS: PANTOPRAZOLE 40 MG TABLET PO SCH (09:51)
[2022-03-29] MEDS: VALSARTAN 160 MG TABLET PO SCH (09:51)
[2022-03-29] MEDS: HYDROCORTISONE 2.5% TOPICAL CREAM 30 GM TUBE TP SCH ×2 (09:54→22:09)
[2022-03-29] MEDS: ATORVASTATIN CA 40 MG TABLET (FP) PO SCH (22:09)
[2022-03-30] MEDS: INSULIN SLIDING SCALE (NOVOLOG) 1 VIAL SQ SCH ×2 (06:28→12:27)
[2022-03-30] MEDS: LEVOTHYROXINE NA 88 MCG TABLET (FP) PO SCH (06:29)
[2022-03-30 07:26] VITALS: TEMP 98.1
[2022-03-30] MEDS: VALSARTAN 160 MG TABLET PO SCH (09:09)
[2022-03-30] MEDS: PANTOPRAZOLE 40 MG TABLET PO SCH (09:09)
[2022-03-30] MEDS: HYDROCORTISONE 2.5% TOPICAL CREAM 30 GM TUBE TP SCH (09:09)
[2022-03-30] MEDS: METOPROLOL TARTRATE 50 MG TABLET (FP) PO SCH (09:09)
[2022-03-30 12:32] VITALS: BP 167/83; PULSE 74; RESP 16
== END 2022-03-30 13:40 | disposition home or self-care (01) ==
LOC: JER 23:10 → UNDOADMOB 03-24 06:19 → JERBED 03-24 06:19 → INTOOBSV 03-24 06:19 → JERBED 03-24 12:51 → J5S 03-24 12:51 → UNDOADMOB 03-25 13:08 → J5S 03-25 13:08
PROVIDERS: ADMIT Family Medicine; ATTEND Family Medicine
PROC: 3E0337Z Introduction of Electrolytic and Water Balance Substance into Peripheral Vein, Percutaneous Approach (ICD-10-PCS; principal; 2022-03-25)
DX: I71.40 Abdominal aortic aneurysm, without rupture, unspecified (principal); N18.32 Chronic kidney disease, stage 3b; I11.0 Hypertensive heart disease with heart failure; N17.9 Acute kidney failure, unspecified; E03.9 Hypothyroidism, unspecified; E78.00 Pure hypercholesterolemia, unspecified; E11.9 Type 2 diabetes mellitus without complications; I10 Essential (primary) hypertension; R31.9 Hematuria, unspecified; M19.90 Unspecified osteoarthritis, unspecified site; I50.9 Heart failure, unspecified
CPT/HCPCS: 36415; 74176-TC; 76856-TC; 80053; 81003; 82272; 82962; 83036; 85025; 85610; 85730; 86850; 86900; 86901; 87086; 87186; 97116-GP; 97161-GP; 99285-25; C9803-CS; G0378; U0003; U0005

== ENCOUNTER 2022-11-21 18:19 | Emergency (ER) | payer BC, OTHER ==
[2022-11-21 18:41] VITALS: BMI 19.9
[2022-11-21 22:48] LABS: BASO % 0.6 % (0-2.0); EOS % 5.3 % (0-4.5); HEMATOCRIT 35.8 % (32.4-45.2); LYMPH % 18.9 % (8-40); MCHC 33.6 g/dl (32.0-36.0); MEAN CELL VOLUME 77.3 fl (80-96); MEAN PLT VOLUME 7.3 fl (7.5-11.1); MONO % 12.8 % (3.8-10.2); NEUT % 62.4 % (42.8-82.8); PLATELET COUNT 173 10^3/uL (134-434); RBC 4.63 M/mm3 (3.60-5.2); RDW 14.6 % (11.6-15.6); WHITE BLOOD COUNT 5.5 K/mm3 (4.0-10.0)
[2022-11-21 23:08] LABS: ALBUMIN 3.3 g/dl (3.4-5.0)
[2022-11-21 23:09] LABS: BLOOD UREA NITROGEN 29.8 mg/dL (7-18)
[2022-11-21 23:10] LABS: POTASSIUM 4.4 mmol/L (3.5-5.1)
[2022-11-21 23:11] LABS: CREATININE 1.8 mg/dL (0.55-1.3)
[2022-11-21 23:13] LABS: BILIRUBIN,TOTAL 0.5 mg/dL (0.2-1)
[2022-11-21 23:15] LABS: CALCIUM 8.9 mg/dL (8.5-10.1)
[2022-11-21 23:57] VITALS: BP 171/86; PULSE 89; RESP 16; TEMP 98.8
== END 2022-11-22 02:22 | disposition home or self-care (01) ==
LOC: JER 18:19
DX: I71.40 Abdominal aortic aneurysm, without rupture, unspecified (principal); R33.9 Retention of urine, unspecified; R39.15 Urgency of urination; K46.9 Unspecified abdominal hernia without obstruction or gangrene
CPT/HCPCS: 36415; 74176-TC; 80053; 83605; 83690; 85025; 93005; 93010; 99285-25

== ENCOUNTER 2022-12-03 14:23 | Emergency (ER) | payer BC ==
[2022-12-03 14:27] VITALS: BP 130/78; PULSE 85; RESP 18; TEMP 99.5; BMI 19.5
[2022-12-03] MEDS ORDERED: SODIUM CHLORIDE 0.9% 500 ML INFUS.BAG IV ONE (15:34)
[2022-12-03] MEDS ORDERED: ACETAMINOPHEN 1000 MG/100 ML BAG IVPB ONE (15:34)
[2022-12-03] MEDS ORDERED: ACETAMINOPHEN INJECTION 100 ML IVPB ONE (15:59)
[2022-12-03 16:12] LABS: BASO % 1.2 % (0-2.0); EOS % 0.8 % (0-4.5); HEMATOCRIT 33.1 % (32.4-45.2); LYMPH % 18.2 % (8-40); MCH 25.5 pg (25.7-33.7); MCHC 33.2 g/dl (32.0-36.0); MEAN CELL VOLUME 76.8 fl (80-96); MEAN PLT VOLUME 7.4 fl (7.5-11.1); MONO % 12.6 % (3.8-10.2); NEUT % 67.2 % (42.8-82.8); PLATELET COUNT 201 10^3/uL (134-434); RBC 4.31 M/mm3 (3.60-5.2); RDW 14.5 % (11.6-15.6); WHITE BLOOD COUNT 9.7 K/mm3 (4.0-10.0)
[2022-12-03 16:31] LABS: POTASSIUM 4.4 mmol/L (3.5-5.1)
[2022-12-03 16:33] LABS: BLOOD UREA NITROGEN 20.2 mg/dL (7-18); CALCIUM 8.9 mg/dL (8.5-10.1)
[2022-12-03 16:37] LABS: CREATININE 1.7 mg/dL (0.55-1.3)
[2022-12-03 16:38] LABS: BILIRUBIN,TOTAL 0.5 mg/dL (0.2-1); TOT PROT 7.8 g/dl (6.4-8.2)
== END 2022-12-03 19:59 | disposition home or self-care (01) ==
LOC: JER 14:23
PROC: 3E033NZ Introduction of Analgesics, Hypnotics, Sedatives into Peripheral Vein, Percutaneous Approach (ICD-10-PCS; principal; 2022-12-03)
DX: R10.32 Left lower quadrant pain (principal)
CPT/HCPCS: 36415; 71045-TC-FY; 74177-TC; 80053; 85025; 93005; 93010; 99285-25